=== PATIENT | female | born 1935 | race Caucasian/White ===

== ENCOUNTER 2020-08-08 07:03 | Day surgery (SDC) | payer OTHER ==
--- OUTSIDE RECORDS SUMMARY | 2020-08-08 07:06 | XMS REPORT | Summary of Care ---
:1935 Author Organization [facility] Address [address] [place] [address] Care Team Providers Name Role Phone Julieta Primary Care Provider Encounter Details Date Type Department Care Team Description 05/23/2020 Laboratory Only [facility] Karen Villegas [place] [facility] [place] [address] Exposure to Covid-19 Phlebotomy Only, Adc Test Virus (Primary Dx) Lab-[address] [address] Allergies Active Allergy Reactions Severity Noted Date Comments Aspirin Unknown - See comments 04/29/2006 Sever e pain Diphenhydramine Hcl Palpitations High 07/01/2006 Morphine Unknown - See comments High 11/25/2017 Evin michael reports It "knocked her ou t and almost killed h er, she wouldn't wake u p." Sulfamethoprim Ds Other - See comments 01/02/2018 documented as of this encounter (statuses as of 05/23/2020) Medications Medication Sig Dispensed Refills Start Date End Date Status levothyroxine Take 137 mcg by 0 Active (SYNTHROID) 137 mcg mouth every tablet morning. mirtazapine (REMERON) 15 Take 15 mg by 0 Active mg tablet mouth at bedtime. ipratropium-albuterol 1 Ampule every 4 0 Active (DUONEB) 0.5 mg-3 mg(2.5 (four) hours as mg base)/3 mL nebulizer needed for solution Wheezing. ALBUTEROL INHALE Inhale 0.083 % 3 0 Active (three) times daily. LIDOCAINE (LIDODERM Apply 1 Patch to 0 Active TOPICAL) area(s) daily. QUEtiapine 300 mg tablet Take 0.5 tablets 30 tablet 1 03/16/20 17 Active by mouth at bedtime. Fluticasone-Salmeterol Inhale 1 Puff 60 Each 1 03/16/2017 Active 100-50 mcg/dose every 12 inhalation disk (twelve) hours. HYDROcodone-acetaminophe Take 1 tablet by 0 Active n 10-325 mg tablet mouth 4 (four) times daily. loratadine (CLARITIN) 10 Take 10 mg by 0 Active mg tablet mouth daily. magnesium oxide 400 mg Take 400 mg by 0 Active capsule mouth daily. memantine (NAMENDA XR) Take 1 capsule 0 Active 28 mg capsule by mouth daily. Olopatadine (PATADAY) Place 1 Drop in 0 Active 0.2 % ophthalmic each eye daily. dropsIndications: Each Indications: Eye Each Eye pantoprazole 40 mg EC Take 40 mg by 0 Active tablet mouth daily. aspirin 81 mg chewable Take 81 mg by 0 Active tablet mouth daily. Cholecalciferol, Vitamin Take 3 capsules 0 Active D3, (VITAMIN D3) 1,000 by mouth daily. unit capsule lactulose 10 gram/15 mL Take 15 mL by 0 Active (15 mL) Soln mouth at bedtime. docusate (COLACE) 100 mg Take 100 mg by 0 Active capsule mouth daily. clonazePAM (KLONOPIN) Take 0.5 mg by 0 Active 0.5 mg tablet mouth 2 (two) times daily. Simethicone 125 mg Tab Take 1 capsule 0 Active by mouth every 4 (four) hours as needed (Gas). Dextromethorphan-Guaifen Take 10 mL by 0 Active esin (TUSSIN DM) 10-100 mouth every 6 mg/5 mL Liqd (six) hours as needed for Cough. bisacodyl 10 mg Insert 10 mg 0 A ctive suppository into rectum once daily as needed for Constipation. bisacodyl 5 mg EC tablet Take 10 mg by 0 Active mouth once daily as needed for Constipation. MAGNESIUM HYDROXIDE Take 30 mL by 0 Active (MILK OF MAGNESIA mouth once daily CONCENTRATED ORAL) as needed for Constipation. nitroglycerin Place 0.4 mg 0 Act brianna (NITROSTAT) 0.4 mg under the tongue sublingual tablet every 5 (five) minutes as needed for Chest pain. MAGNESIUM CITRATE ORAL Take 10 oz by 0 Active mouth once daily as needed for Constipation. SERTraline 50 mg tablet Take 75 mg by 0 Active mouth daily. MULTIVITAMIN ORAL Take 1 tablet by 0 Active mouth daily. montelukast (SINGULAIR) Take 10 mg by 0 Active 10 mg tablet mouth daily. lisinopril 10 mg tablet Take 10 mg by 0 Active mouth at bedtime. DEXTRAN 70/HYPROMELLOSE Place 1 Drop in 0 Active (ARTIFICIAL TEARS each eye 2 (two) OPHTHALMIC) times daily. gabapentin 600 mg Take 600 mg by 0 Active tabletIndications: Take mouth 2 (two) at 0800 and 1200. times daily. Indications: Take at 0800 and 1200. ferrous sulfate 325 mg Take 325 mg by 0 Active (65 mg iron) tablet mouth 2 (two) times daily. albuterol sulfate Inhale 2 Puffs 0 Active (PROAIR RESPICLICK) 90 every 6 (six) mcg/actuation AePB hours as needed for Other (Shortness of breath). umeclidinium-vilanterol Inhale 1 Puff 0 Active (ANORO ELLIPTA) 62.5-25 daily. mcg/actuation inhalation disk donepezil 10 mg tablet Take 15 mg by 0 Active mouth at bedtime. tiZANidine 2 mg capsule Take 2 mg by 0 Active mouth at bedtime. acetaminophen 325 mg Take 650 mg by 0 Active tablet mouth every 6 (six) hours as needed for Pain (scale 1-3). cloNIDine 0.1 mg Take 0.1 mg by 0 Active tabletIndications: SBP mouth every 6 >180 (six) hours as needed for Other (B/P). Indications: SBP >180 alum-mag Take 30 mL by 0 Active hydroxide-simeth mouth every 6 (NAINA-MOX (six) hours as ANTACID-ANTIGAS) needed for 200-200-20 mg/5 mL Indigestion. suspension guaifenesin (NAINA-TUSSIN Take 10 mL by 0 Active ORAL) mouth every 8 (eight) hours as needed (cough). phenazopyridine 100 mg Take 200 mg by 0 Active tabletIndications: pain mouth 2 (two) related to dysuria times daily. Indications: pain related to dysuria documented as of this encounter (statuses as of 05/23/2020) Active Problems Problem Noted Date Hypotension 11/24/2019 Acute pancreatitis 10/05/2018 SHANE (acute kidney injury) 03/16/2017 Hypoxia 03/16/2017 Polypharmacy 03/16/2017 Altered mental status 03/14/2017 Obesity (BMI 30-39.9) 03/13/2017 UTI (urinary tract infection) 03/13/2017 Complicated UTI (urinary tract infection) 03/13/2017 Sepsis 06/19/2016 Essential hypertension, benign 10/18/2006 Calculus of kidney 10/18/2006 Routine general medical examination at [facility] 10/18/2006 Esophageal reflux 10/18/2006 Depressive disorder 10/18/2006 Overview: ICD10 Diagnosis Term Wind Turbine Erector Utility Anxiety state 10/18/2006 Overview: ICD10 Diagnosis Term Wind Turbine Erector Utility documented as of this encounter (statuses as of 05/23/2020) Immunizations Name Administration Dates Next Due Influenza Virus Vaccine 10/18/2006 Pneumococcal Polysaccharide, PPSV23 (PNEUMOVAX) 06/24/2016 documented as of this encounter Social History Tobacco Use Types Packs/Day Years Used Date Former Smoker Cigarettes 1 30 Smokeless Tobacco: Never Used Comments: quit 4 years ago Alcohol Use Drinks/Week oz/Week Comments No Sex Assigned at Date Recorded Not on file Job Start Date Occupation Industry Not on file Not on file Not on file Travel History Travel Start Travel End No recent travel history available. documented as of this encounter Last Filed Vital Signs Not on filedocumented in this encounter Plan of Treatment Date Type Specialty Care Team Description 07/02/2020 Office Visit Urology Vera Maldonado, MACHINIST LINOTYPE [address] [address] [phone] Name Type Priority Associated Diagnoses Date/Ti me COVID-19 (PCR MOLECULAR LAB Routine Exposure to Covid -19 05/22/2020 6:48 PM CDT TESTING) Virus Name Type Priority Associated Diagnoses Order S nissa COVID-19 (PCR MOLECULAR LAB Routine Exposure to Covid -19 Expected: 05/23/2020, TESTING) Virus Expires: 2020 Health Maintenance Due Date Last Done Comments DTaP,Tdap,and Td Vaccines (1 - Tdap) 1946 Zoster Recombinant Vaccine (SHINGRIX) (1 of 2) 1987 Medicare Wellness Visit 2002 Osteoporosis Screening 04/01/2015 04/01/2005 PNEUMOCOCCAL VACCINES 65+ (2 of 2 - PCV13) 06/24/201706/24 INFLUENZA VACCINE (#1) 2020 10/18/2006 Depression Screening 01/02/2021 01/02/2020 documented as of this encounter Results Not on filedocumented in this encounter Visit Diagnoses Diagnosis Exposure to Covid-19 Virus - Primary documented in this encounter Additional Health Concerns Infection Onset Date Last Indicated Resolved Time Contact- MRSA 06/21/2016 06/21/2016 documented as of this encounter Insurance Payer Benefit Plan / Subscriber ID Effective Dates Phone Addre ss Type Group MEDICARE MEDICARE PART xxxxxxxxxxx 2002-Prese [phone] Medicare A & B 2 [id number] [place] [address] [facility] MEDICAID OF xxxxxxxxx 2015-Presen [phone] [address] Medicaid [facility] 0 [id number] [place] [address] [phone] (Work) documented as of this encounter Advance Directives Name Relationship Healthcare Agent Communication Relationship Alejandro Garry Child Primary healthcare agent Brit Castañeda Grandchild Second alternate [phone] healthcare agent (Mobile) [email or web address]
--- OUTSIDE RECORDS SUMMARY | 2020-08-08 07:07 | XMS REPORT | Continuity of Care Document ---
:1935 Author Organization [facility] t Address 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 Allergies, Adverse Reactions, Alerts This patient has no known allergies or adverse reactions. Medications This patient has no known medications. Procedures This patient has no known procedures. Encounters Start End Encounter Admission Attending Care Care Encounter Source Date/Time Date/Time Type Type Clinicians Facility Department ID 2020-07-30 2020-07-30 Orders Doctor [place] [id number] 00:00:00 00:00:00 Only UnassDULCE ernst [id number] [place] [facility] [id number] [id number] [id number] 2020-06-09 2020-06-09 Orders Doctor [place] 1.2.840.114 [id number] 00:00:00 00:00:00 Only Unassigned, DULCE [id number] [place] [facility] 4.2.7.2.686 [id number] [id number] 2020-05-23 2020-05-23 Laboratory Only, Adc [facility] 1.2.840.114 [id number] 10:24:14 10:28:52 Only Test [place] [id number] [place] 4.2.7.2.686 [place] [id number] [id number] 2020-05-22 2020-05-22 Orders Doctor ERIK Peñaloza.2.840.114 [id number] 00:00:00 00:00:00 Only Unassigned, DULCE [id number] [place] [facility] 4.2.7.2.686 [id number] [id number] 2020-02-25 2020-02-25 Orders Doctor ERIK Peñaloza.2.840.114 [id number] 00:00:00 00:00:00 Only Unassigned, DULCE 350.1.13.10 [place] [facility] 4.2.7.2.686 [id number] [id number] 2020-02-08 2020-02-08 Orders Doctor ERIK Peñaloza.2.840.114 [id number] 00:00:00 00:00:00 Only Unassigned, DULCE 350.1.13.10 [place] [facility] 4.2.7.2.686 [id number] [id number] 2020-01-31 2020-01-31 Orders Doctor [place] 1.2.840.114 [id number] 00:00:00 00:00:00 Only Unassigned, DULCE 350.1.13.10 [place] [facility] 4.2.7.2.686 [id number] [id number] 2020-01-23 2020-01-23 Orders Doctor ERIK Delgado2.840.114 [id number] 00:00:00 00:00:00 Only Unassigned, DULCE 350.1.13.10 [place] [facility] 4.2.7.2.686 [id number] [id number] 2020-01-11 2020-01-11 Orders Doctor ERIK Delgado2.840.114 [id number] 00:00:00 00:00:00 Only Unassigned, DULCE 350.1.13.10 [place] [facility] 4.2.7.2.686 [id number] [id number] 2020-01-09 2020-01-09 Hospital Radiology [facility] 1.2.840.114 [id number] 14:44:00 23:59:00 Encounter [place] 350.1.13.10 [place] 4.2.7.2.686 [place] [id number] 2020-01-04 2020-01-04 Orders Doctor ERIK 1.2.840.114 [id number] 00:00:00 00:00:00 Only Unassigned, DULCE 350.1.13.10 [place] [facility] 4.2.7.2.686 [id number] [id number] 2020-01-02 2020-01-02 Office Gramm, [facility] 1.2.840.114 [id number] 12:57:07 13:29:25 Visit Vera Castro [place] 350.1.13.10 [place] 4.2.7.2.686 [facility] [id number] [address] 2019-12-29 2019-12-29 Orders Doctor [place] 1.2.840.114 [id number] 01 00:00:00 00:00:00 Only Unassigned, [place]ULCE 350.1.13.10 [place] [facility] 4.2.7.2.686 [id number] [id number] 2019-12-17 2019-12-17 Orders Doctor [place] 1.2.840.114 [id number] 31 00:00:00 00:00:00 Only Unassigned, [place]ULCE 350.1.13.10 [place] [facility] 4.2.7.2.686 [id number] [id number] Results This patient has no known results.
--- OUTSIDE RECORDS SUMMARY | 2020-08-08 07:07 | XMS REPORT | Summary of Care ---
:1935 Author Organization [facility] - Health Address [address] [place] [address] Care Team Providers Name Role Phone Julieta Primary Care Provider Encounter Details Date Type Department Care Team Description 06/09/2020 Orders Only [facility] Doctor Unassigned, No 301 [facility] [place] [address] [address] [place] [address] Allergies Active Allergy Reactions Severity Noted Date Comments Aspirin Unknown - See comments 04/29/2006 Sever e pain Diphenhydramine Hcl Palpitations High 07/01/2006 Morphine Unknown - See comments High 11/25/2017 Evin michael reports It "knocked her ou t and almost killed h er, she wouldn't wake u p." Sulfamethoprim Ds Other - See comments 01/02/2018 documented as of this encounter (statuses as of 06/10/2020) Medications Medication Sig Dispensed Refills Start Date [...] as of this encounter (statuses as of 06/10/2020) Active Problems Problem Noted Date Hypotension 11/24/2019 Acute pancreatitis 10/05/2018 SHANE (acute kidney injury) 03/16/2017 Hypoxia 03/16/2017 Polypharmacy 03/16/2017 Altered mental status 03/14/2017 Obesity (BMI 30-39.9) 03/13/2017 UTI (urinary tract infection) 03/13/2017 Complicated UTI (urinary tract infection) 03/13/2017 Sepsis 06/19/2016 Essential hypertension, benign 10/18/2006 Calculus of kidney 10/18/2006 [facility] 10/18/2006 Esophageal reflux 10/18/2006 Depressive disorder 10/18/2006 Overview: ICD10 Diagnosis Term Report Clerk Utility Anxiety state 10/18/2006 Overview: ICD10 Diagnosis Term Report Clerk Utility documented as of this encounter (statuses as of 06/10/2020) Immunizations Name Administration Dates Next Due Influenza [...] Description 07/02/2020 Office Visit Urology Vera Maldonado, STORE WORKER [address] [address] 15 [phone] Health Maintenance Due Date Last Done Comments DTaP,Tdap,and Td Vaccines (1 - Tdap) 1946 Zoster Recombinant Vaccine (SHINGRIX) (1 of 2) 1987 Medicare Wellness Visit 2002 Osteoporosis Screening 04/01/2015 04/01/2005 PNEUMOCOCCAL VACCINES 65+ (2 of 2 - PCV13) 06/24/201706/24 INFLUENZA VACCINE (#1) 2020 10/18/2006 Depression Screening 01/02/2021 01/02/2020 documented as of this encounter Procedures Procedure Name Priority Date/Time Associated Diagnosis Comme nts HOME HEALTH - OTHER Routine 06/09/2020 12:01 AM CDT documented in this encounter Results Not on filedocumented in this encounter Additional Health Concerns Infection Onset Date Last Indicated Resolved Time Contact- MRSA 06/21/2016 06/21/2016 documented as of this encounter Insurance Payer Benefit Plan / Subscriber ID Effective Dates Phone Addre ss Type Group MEDICARE MEDICARE PART xxxxxxxxxxx 2002-Prese [phone] [address] Medicare A & B 2 [id number] [place] [address] [facility] MEDICAID OF xxxxxxxxx 2015-Presen [phone] [address] Medicaid [facility] 0 [id number] [place] [address] documented as of this encounter Advance Directives Name Relationship Healthcare Agent Communication Relationship Alejandro Castañeda Child Primary healthcare agent Brit Castañeda Grandchild Second alternate [phone] healthcare agent (Mobile) [email or web address]
--- OUTSIDE RECORDS SUMMARY | 2020-08-08 07:07 | XMS REPORT | Summary of Care ---
:1935 Author Organization [facility] - Health Address [address] [place] [address] Care Team Providers Name Role Phone Julieta Primary Care Provider Encounter Details Date Type Department Care Team Description 05/22/2020 Orders Only [facility] Doctor Unassigned, No 301 [facility] [place] [address] [address] [place] [address] Allergies Active Allergy Reactions Severity Noted Date Comments Aspirin Unknown - See comments 04/29/2006 Sever e pain Diphenhydramine Hcl Palpitations High 07/01/2006 Morphine Unknown - See comments High 11/25/2017 Evin michael reports It "knocked her ou t and almost killed h er, she wouldn't wake u p." Sulfamethoprim Ds Other - See comments 01/02/2018 documented as of this encounter (statuses as of 06/02/2020) Medications Medication Sig Dispensed Refills Start Date [...] as of this encounter (statuses as of 06/02/2020) Active Problems Problem Noted Date Hypotension 11/24/2019 Acute pancreatitis 10/05/2018 SHANE (acute kidney injury) 03/16/2017 Hypoxia 03/16/2017 Polypharmacy 03/16/2017 Altered mental status 03/14/2017 Obesity (BMI 30-39.9) 03/13/2017 UTI (urinary tract infection) 03/13/2017 Complicated UTI (urinary tract infection) 03/13/2017 Sepsis 06/19/2016 Essential hypertension, benign 10/18/2006 Calculus of kidney 10/18/2006 [facility] 10/18/2006 Esophageal reflux 10/18/2006 Depressive disorder 10/18/2006 Overview: ICD10 Diagnosis Term Generation Manager Utility Anxiety state 10/18/2006 Overview: ICD10 Diagnosis Term Generation Manager Utility documented as of this encounter (statuses as of 06/02/2020) Immunizations Name Administration Dates Next Due Influenza [...] Description 07/02/2020 Office Visit Urology Vera Maldonado, PLASTIC DOLLS MOLD FILLER [address] [address] [phone] Health Maintenance Due Date Last Done Comments [...] Comme nts HOME HEALTH - OTHER Routine 05/22/2020 12:01 AM CDT documented in this encounter Results Not on filedocumented in this encounter Additional Health Concerns Infection Onset Date Last Indicated Resolved Time Contact- MRSA 06/21/2016 06/21/2016 COVID-19 Rule Out 05/23/2020 05/22/2020 05/23/2020 10: 03 PM CDT documented as of this encounter Insurance Payer Benefit Plan / Subscriber ID Effective Dates Phone Addre ss Type Group MEDICARE MEDICARE PART xxxxxxxxxxx 2002-Prese [phone] Medicare A & B 2 [id number] [place] [address] [facility] MEDICAID OF xxxxxxxxx 2015-Presen [id number] [address] Medicaid [facility] [id number] [place] [address] documented as of this encounter Advance Directives Name Relationship Healthcare Agent Communication Relationship Alejandro Castañeda Child Primary healthcare agent Brit Castañeda Grandchild Second alternate [phone] healthcare agent (Mobile) [email or web address]
--- OUTSIDE RECORDS SUMMARY | 2020-08-08 07:07 | XMS REPORT | Summary of Care ---
:1935 Author Organization [facility] - Health Address [address] [place] [address] Care Team Providers Name Role Phone Julieta Primary Care Provider Encounter Details Date Type Department Care Team Description 07/30/2020 Orders Only [facility] Doctor Unassigned, No 301 [facility] [place] [address] [address] [id number] Allergies Active Allergy Reactions Severity Noted Date Comments Aspirin Unknown - See comments 04/29/2006 Sever e pain Diphenhydramine Hcl Palpitations High 07/01/2006 Morphine Unknown - See comments High 11/25/2017 Evin michael reports It "knocked her ou t and almost killed h er, she wouldn't wake u p." Sulfamethoprim Ds Other - See comments 01/02/2018 documented as of this encounter (statuses as of 07/31/2020) Medications Medication Sig Dispensed Refills Start Date [...] as of this encounter (statuses as of 07/31/2020) Active Problems Problem Noted Date Hypotension 11/24/2019 Acute pancreatitis 10/05/2018 SHANE (acute kidney injury) 03/16/2017 Hypoxia 03/16/2017 Polypharmacy 03/16/2017 Altered mental status 03/14/2017 Obesity (BMI 30-39.9) 03/13/2017 UTI (urinary tract infection) 03/13/2017 Complicated UTI (urinary tract infection) 03/13/2017 Sepsis 06/19/2016 Essential hypertension, benign 10/18/2006 Calculus of kidney 10/18/2006 [facility] 10/18/2006 Esophageal reflux 10/18/2006 Depressive disorder 10/18/2006 Overview: ICD10 Diagnosis 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 Composing Room Utility Anxiety state 10/18/2006 Overview: ICD10 Diagnosis 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 Composing Room Utility documented as of this encounter (statuses as of 07/31/2020) Immunizations Name Administration Dates Next Due Influenza Virus Vaccine 10/18/2006 Pneumococcal Polysaccharide, PPSV23 (PNEUMOVAX) 06/24/2016 documented as of this encounter Social History Tobacco Use Types Packs/Day Years Used Date Former Smoker Cigarettes 1 30 Smokeless Tobacco: Never Used Comments: quit 4 years ago Alcohol Use Drinks/Week oz/Week Comments No Sex Assigned at Date Recorded Not on file documented as of this encounter Last Filed Vital Signs Not on filedocumented in this encounter Plan of Treatment Health Maintenance Due Date Last Done Comments DTaP,Tdap,and Td Vaccines (1 - Tdap) 1954 Zoster Recombinant Vaccine (SHINGRIX) (1 of 2) 1987 Medicare Wellness Visit 2002 Osteoporosis Screening 04/01/2015 04/01/2005 INFLUENZA VACCINE (#1) 2020 10/18/2006 Depression Screening 01/02/2021 01/02/2020 PNEUMOCOCCAL VACCINES 65+ Completed 06/24/2016 documented as of this encounter Procedures Procedure Name Priority Date/Time Associated Diagnosis Comme nts HOME HEALTH - OTHER Routine 07/30/2020 12:01 AM CDT documented in this encounter Results Not on filedocumented in this encounter Additional Health Concerns Infection Onset Date Last Indicated Resolved Time Contact- MRSA 06/21/2016 06/21/2016 documented as of this encounter Insurance Payer Benefit Plan / Subscriber ID Effective Dates Phone Addre ss Type Group MEDICARE MEDICARE PART [id number] 2002-Prese [phone] [address] Medicare A & B [place] 2 [id number] [place] [id number] [facility] MEDICAID OF [id number] 2015-Presharry [phone] [address] Medicaid [facility] 0 [id number] [place] [address] documented as of this encounter Advance Directives Name Relationship Healthcare Agent Communication Relationship Alejandro Castañeda [facility] Health Care Agent Brit Castañeda Grandchild [employer] [facility] Care Agent (Mobile) [email or web address]
[2020-08-08] MEDS ORDERED: NA CHLORIDE 0.9% 250 ML ONE (08:08)
[2020-08-08 09:03] VITALS: BMI 35.2
[2020-08-08] MEDS ORDERED: FUROSEMIDE 40 MG/4 ML VIAL ONE (12:02)
[2020-08-08 12:52] LABS: Hematocrit 28.6 % (36.0-45.0)
[2020-08-08 18:02] VITALS: BP 159/66; TEMP 97.5; O2SAT 95
== END 2020-08-08 12:00 | disposition home or self-care (01) ==
LOC: DS 07:03
PROVIDERS: ATTEND Internal Medicine Gastroenterology
DX: D50.9 Iron deficiency anemia, unspecified (principal)
CPT/HCPCS: 36415; 86900; 86850; 86901; 85018; 85014; 36430; J1940; P9016; J7050

== ENCOUNTER 2020-11-10 15:11 | Emergency (ER) | payer OTHER ==
--- OUTSIDE RECORDS SUMMARY | 2020-11-10 15:13 | XMS REPORT | Summary of Care ---
:1935 Author Organization [facility] - Health Address [address] [place] [address] Care Team Providers Name Role Phone Julieta Primary Care Provider Encounter Details Date Type Department Care Team Description 08/12/2020 Orders Only [facility] Doctor Unassigned, No 301 [facility] [place] [address] [address] [place] [id number] Allergies Active Allergy Reactions Severity Noted Date Comments Aspirin Unknown - See comments 04/29/2006 Sever e pain Diphenhydramine Hcl Palpitations High 07/01/2006 Morphine Unknown - See comments High 11/25/2017 Evin michael reports It "knocked her ou t and almost killed h er, she wouldn't wake u p." Sulfamethoprim Ds Other - See comments 01/02/2018 documented as of this encounter (statuses as of 08/13/2020) Medications Medication Sig Dispensed Refills Start Date [...] as of this encounter (statuses as of 08/13/2020) Active Problems Problem Noted Date Hypotension 11/24/2019 Acute pancreatitis 10/05/2018 SHANE (acute kidney injury) 03/16/2017 Hypoxia 03/16/2017 Polypharmacy 03/16/2017 Altered mental status 03/14/2017 Obesity (BMI 30-39.9) 03/13/2017 UTI (urinary tract infection) 03/13/2017 Complicated UTI (urinary tract infection) 03/13/2017 Sepsis 06/19/2016 Essential hypertension, benign 10/18/2006 Calculus of kidney 10/18/2006 [facility] 10/18/2006 Esophageal reflux 10/18/2006 Depressive disorder 10/18/2006 Overview: ICD10 Diagnosis Term Physician Non Invasive Cardiologist Utility Anxiety state 10/18/2006 Overview: ICD10 Diagnosis Term Physician Non Invasive Cardiologist Utility documented as of this encounter (statuses as of 08/13/2020) Immunizations Name Administration Dates Next Due Influenza [...] Comme nts HOME HEALTH - OTHER Routine 08/12/2020 12:01 AM CDT documented in this encounter Results Not on filedocumented in this encounter Additional Health Concerns Infection Onset Date Last Indicated Resolved Time Contact- MRSA 06/21/2016 06/21/2016 documented as of this encounter Insurance Payer Benefit Plan / Subscriber ID Effective Dates Phone Addre ss Type Group MEDICARE MEDICARE PART [id number] 2002-Prese [phone] Medicare A & B nt 2 [id number] J[place]H TOURE [address] [facility] MEDICAID OF [id number] 2015-Presharry [phone] [address] Medicaid [facility] [id number] [place] [address] documented as of this encounter Advance Directives Name Relationship Healthcare Agent Communication Relationship Alejandro Castañeda [facility] Health Care Agent Brit Castañeda Grandchild [facility] [phone] Care Agent (Mobile) [email or web address]
--- OUTSIDE RECORDS SUMMARY | 2020-11-10 15:13 | XMS REPORT | Continuity of Care Document ---
:1935 Author Organization [facility] t Address [address] [place] [address] Care Team Providers Name Role Phone Surinder TABOR, L Attending Clinician Unavailable Doctor Unassigned, Name Attending Clinician Unavailable Diane WHALEY C Attending Clinician Pob, Lab Main Attending Clinician Unavailable Only, Test Attending Clinician Unavailable Radiology Attending Clinician Unavailable Gramm SENIOR PHARMACY TECHNICIAN, A Attending Clinician Problems This patient has no known problems. Allergies, Adverse Reactions, Alerts This patient has no known allergies or adverse reactions. Medications This patient has no known medications. Procedures This patient has no known procedures. Encounters Start End Encounter Admission Attending Care Care Encounter Source Date/Time Date/Time Type Type Clinicians Facility Department ID 2020-11-04 2020-11-04 Transition Joey Cadena 1.2.840.114 [id number] 00:00:00 00:00:00 of Care Jennifer Sorenson 350.1.13.10 [place] 4.2.7.2.686 [id number] 2020-10-28 2020-10-28 Orders Doctor VALENCIA 1.2.840.114 [id number] 00:00:00 00:00:00 Only Unassigned, DULCE 350.1.13.10 [facility] 4.2.7.2.686 [id number] [id number] 2020-10-23 2020-10-23 Orders Doctor VALENCIA 1.2.840.114 [id number] 00:00:00 00:00:00 Only Unassigned, DULCE 350.1.13.10 [facility] 4.2.7.2.686 [id number] 009 2020-10-13 2020-10-13 Orders Doctor VALENCIA 1.2.840.114 [id number] 00:00:00 00:00:00 Only Unassigned, DULCE 350.1.13.10 [place] [address].2.7.2.686 [id number] 009 2020-09-25 2020-09-25 Orders Doctor VALENCIA 1.2.840.114 [id number] 00:00:00 00:00:00 Only Unassigned, DULCE 350.1.13.10 [facility] 4.2.7.2.686 [id number] [id number] 2020-08-26 2020-08-26 Orders Doctor VALENCIA 1.2.840.114 [id number] 00:00:00 00:00:00 Only Unassigned, DULCE 350.1.13.10 [facility] 4.2.7.2.686 [id number] 009 2020-08-25 2020-08-25 [facility] 1.2.840.114 [id number] 16:56:49 23:59:00 Elaine Ladd 350.1.13.10 [place] 4.2.7.2.686 [place] [id number] 2020-08-25 2020-08-25 Orders Doctor VALENCIA 1.2.840.114 [id number] 00:00:00 00:00:00 Only Unassigned, DULCE 350.1.13.10 [facility] 4.2.7.2.686 [id number] 009 2020-08-19 2020-08-19 Manager Of Production Margo Garcia [facility] 1.2.840.114 [id number] 12:38:14 12:53:14 Visit Lab Main [place] 350.1.13.10 [place] 4.2.7.2.686 [facility] [id number] [address] 2020-08-12 2020-08-12 Orders Doctor VALENCIA 1.2.840.114 [id number] 00:00:00 00:00:00 Only Unassigned, DULCE 350.1.13.10 [facility] 4.2.7.2.686 [id number] [id number] 2020-07-30 2020-07-30 Orders Doctor VALENCIA 1.2.840.114 [id number] 00:00:00 00:00:00 Only Unassigned, DULCE 350.1.13.10 [facility] 4.2.7.2.686 [id number] 009 2020-06-09 2020-06-09 Orders Doctor ERIK Peañloza.2.840.114 [id number] 00:00:00 00:00:00 Only Unassigned, DULCE 350.1.13.10 [facility] 4.2.7.2.686 [id number] 009 2020-05-23 2020-05-23 Laboratory Only, [facility] 1.2.840.114 [id number] 10:24:14 10:28:52 Only Test [place] 350.1.13.10 [place] 4.2.7.2.686 [place] [id number] 2020-05-22 2020-05-22 Orders Doctor ERIK Peñaloza.2.840.114 [id number] 31 00:00:00 00:00:00 Only Unassigned, DULCE 350.1.13.10 [facility] 4.2.7.2.686 [id number] 009 2020-02-25 2020-02-25 Orders Doctor ERIK Delgado2.840.114 [id number] 00:00:00 00:00:00 Only Unassigned, DULCE 350.1.13.10 [facility] 4.2.7.2.686 [id number] 009 2020-02-08 2020-02-08 Orders Doctor ERIK Delgado2.840.114 [id number] 00:00:00 00:00:00 Only Unassigned, DULCE 350.1.13.10 [facility] 4.2.7.2.686 [id number] 009 2020-01-31 2020-01-31 Orders Doctor VALENCIA 1.2.840.114 [id number] 00:00:00 00:00:00 Only Unassigned, DULCE 350.1.13.10 [facility] 4.2.7.2.686 [id number] 009 2020-01-23 2020-01-23 Orders Doctor VALENCIA 1.2.840.114 [id number] 00:00:00 00:00:00 Only Unassigned, DULCE 350.1.13.10 [facility] 4.2.7.2.686 [id number] 009 2020-01-11 2020-01-11 Orders Doctor VALENCIA 1.2.840.114 [id number] 00:00:00 00:00:00 Only Unassigned, DULCE 350.1.13.10 [facility] 4.2.7.2.686 [id number] 009 2020-01-09 2020-01-09 Hospital Radiology [facility] 1.2.840.114 [id number] 14:44:00 23:59:00 Encounter [place] 350.1.13.10 [place] 4.2.7.2.686 [place] [id number] 2020-01-04 2020-01-04 Orders Doctor VALENCIA 1.2.840.114 [id number] 00:00:00 00:00:00 Only Unassigned, DULCE 350.1.13.10 [facility] 4.2.7.2.686 [id number] 009 2020-01-02 2020-01-02 Office Gramm, [facility] 1.2.840.114 [id number] 03 12:57:07 13:29:25 Visit Vera Aquino 350.1.13.10 [place] 4.2.7.2.686 [facility] [phone] [address] 2019-12-29 2019-12-29 Orders Doctor VALENCIA 1.2.840.114 [id number] 01 00:00:00 00:00:00 Only Unassigned, DULCE 350.1.13.10 [place] [address].2.7.2.686 [id number] 009 2019-12-17 2019-12-17 Orders Doctor ERIK 1.2.840.114 [id number] 00:00:00 00:00:00 Only Unassigned, [place]ULCE 350.1.13.10 [place] [address]686 [id number] 009 Results This patient has no known results.
--- OUTSIDE RECORDS SUMMARY | 2020-11-10 15:14 | XMS REPORT | Summary of Care ---
:1935 Author Organization [facility] Address [address] [place] [address] Care Team Providers Name Role Phone Julieta Primary Care Provider Reason for Visit Reason Comments LAB WORK Auth/Cert Status Reason Specialty Diagnoses / Procedures Referred By Jorge valle Referred To Contact Phlebotomy Procedures Adc Pob Lab Draw CBC Professional O ffice Building [address] , [address] [place] [address] Phone: Fax: Encounter Details Date Type Department Care Team Description 08/19/2020 Husker Operator Visit [facility] Jessie Contreras MD [facility] [address] [place] [employer] [id number] [place] [address] Hepatic cirrhosis, unspecified hepatic c irrhosis type, unspecified whether ascites present (Primary Dx); Professional Office Pob, Adc Lab Main Iron deficiency anemia, unspecified iron deficiency anemia type Building Phlebotomy Lab Professional Office Building [address] [facility] , [address] [place] [address] Allergies Active Allergy Reactions Severity Noted Date Comments Aspirin Unknown - See comments 04/29/2006 Sever e pain Diphenhydramine Hcl Palpitations High 07/01/2006 Morphine Unknown - See comments High 11/25/2017 Evin michael reports It "knocked her ou t and almost killed h er, she wouldn't wake u p." Sulfamethoprim Ds Other - See comments 01/02/2018 documented as of this encounter (statuses as of 08/19/2020) Medications Medication Sig Dispensed Refills Start Date [...] as of this encounter (statuses as of 08/19/2020) Active Problems Problem Noted Date Hypotension 11/24/2019 Acute pancreatitis 10/05/2018 SHANE (acute kidney injury) 03/16/2017 Hypoxia 03/16/2017 Polypharmacy 03/16/2017 Altered mental status 03/14/2017 Obesity (BMI 30-39.9) 03/13/2017 UTI (urinary tract infection) 03/13/2017 Complicated UTI (urinary tract infection) 03/13/2017 Sepsis 06/19/2016 Essential hypertension, benign 10/18/2006 Calculus of kidney 10/18/2006 Routine general medical examination at a health care acility 10/18/2006 Esophageal reflux 10/18/2006 Depressive disorder 10/18/2006 Overview: ICD10 Diagnosis Term Progressive Care Nurse Utility Anxiety state 10/18/2006 Overview: ICD10 Diagnosis Term Progressive Care Nurse Utility documented as of this encounter (statuses as of 08/19/2020) Immunizations Name Administration Dates Next Due Influenza Virus Vaccine 10/18/2006 Pneumococcal Polysaccharide, PPSV23 (PNEUMOVAX) 06/24/2016 documented as of this encounter Social History Tobacco Use Types Packs/Day Years Used Date Former Smoker Cigarettes 1 30 Smokeless Tobacco: Never Used Comments: quit 4 years ago Alcohol Use Drinks/Week oz/Week Comments No Sex Assigned at Date Recorded Not on file COVID-19 Exposure Response Date Recorded In the last month, have you been in contact with No / Unsure 08/19/2020 12:37 PM CDT someone who was confirmed or suspected to have Coronavirus / COVID-19? documented as of this encounter Last Filed Vital Signs Not on filedocumented in this encounter Nursing Notes Cortney Ace - 08/19/2020 1:30 PM CDT Venipuncture collection performed by clean technique on the right hand. Total of 1 attempts were made. Slight pressure and a bandage/dressing were applied to the site(s). The patient experienced no complications. The following specimens were processed according to instructions and sent to [facility] laboratories per lab order on 08/19/20: LT BLUE 2 SST RED 1 LAV PPT DK GREEN (LiHep) DK GREEN (SodH) ALLISON DK BLUE (K2) DK BLUE (S) ACD Blood Culture NIPT/NTD documented in this encounter Plan of Treatment Date Type Specialty Care Team Description 08/25/2020 Appointment Radiology Diane, Cony Patel MD [address] [place] [phone] Name Type Priority Associated Diagnoses Order S chedule CBC WITH DIFF LAB Routine Hepatic cirrhosis, Expected : 08/19/2020, unspecified hepatic Expires: 08/19/2021 cirrhosis type, unspecified whether ascites present Iron deficiency anemia, unspecified iron deficiency anemia type BASIC METABOLIC PANEL LAB Routine Hepatic cirrhosis, Expected: 08/19/2020, (NA, K, CL, CO2, GLUCOSE, unspecified hep atic Expires: 08/19/2021 BUN, CREATININE, CA) cirrhosis type, unspecified whether ascites present Iron deficiency anemia, unspecified iron deficiency anemia type HEPATIC FUNCTION PANEL LAB Routine Hepatic cirrhosis, Expected: 08/19/2020, (88335) (ALB,T.PRO,BILI unspecified hepat ic Expires: 08/19/2021 T,BU/BC,ALT,AST,ALK PHOS) cirrhosis type, unspecified whether ascites present Iron deficiency anemia, unspecified iron deficiency anemia type ALPHA FETOPROTEIN LAB Routine Hepatic cirrhosis, Expe cted: 08/19/2020, unspecified hepatic Expires: 08/19/2021 cirrhosis type, unspecified whether ascites present Iron deficiency anemia, unspecified iron deficiency anemia type IRON PANEL LAB Routine Hepatic cirrhosis, Expected: 08/19/2020, unspecified hepatic Expires: 08/19/2021 cirrhosis type, unspecified whether ascites present Iron deficiency anemia, unspecified iron deficiency anemia type FERRITIN SERUM LAB Routine Hepatic cirrhosis, Expecte d: 08/19/2020, unspecified hepatic Expires: 08/19/2021 cirrhosis type, unspecified whether ascites present Iron deficiency anemia, unspecified iron deficiency anemia type TOTAL IRON BINDING LAB Routine Hepatic cirrhosis, Exp ected: 08/19/2020, CAPACITY unspecified hepatic Expires: 08/19/2021 cirrhosis type, unspecified whether ascites present Iron deficiency anemia, unspecified iron deficiency anemia type Health Maintenance Due Date Last Done Comments DTaP,Tdap,and Td Vaccines (1 - Tdap) 1954 Zoster Recombinant Vaccine (SHINGRIX) (1 of 2) 1987 Medicare Wellness Visit 2002 Osteoporosis Screening 04/01/2015 04/01/2005 INFLUENZA VACCINE (#1) 2020 10/18/2006 Depression Screening 01/02/2021 01/02/2020 PNEUMOCOCCAL VACCINES 65+ Completed 06/24/2016 documented as of this encounter Results Not on filedocumented in this encounter Visit Diagnoses Diagnosis Hepatic cirrhosis, unspecified hepatic c irrhosis type, unspecified whether ascites present - Primary Iron deficiency anemia, unspecified iron deficiency anemia type documented in this encounter Additional Health Concerns Infection Onset Date Last Indicated Resolved Time Contact- MRSA 06/21/2016 06/21/2016 documented as of this encounter Insurance Payer Benefit Plan / Subscriber ID Effective Dates Phone Addre ss Type Group MEDICARE MEDICARE PART [id number] 2002-Prese [phone] [address] Medicare A & B 2 [id number] [place] [address] [facility] MEDICAID OF [id number] 2015-Presharry [phone] [address] Medicaid [place] 0 [id number] [place] [address] [phone] [id number] (Work) documented as of this encounter Advance Directives Name Relationship Healthcare Agent Communication Relationship Alejandro Castañeda Child Health Care Agent Brit Castañeda Grandchild Second [address]4 [phone] Care Agent (Mobile) [email or web address]
--- OUTSIDE RECORDS SUMMARY | 2020-11-10 15:14 | XMS REPORT | Summary of Care ---
:1935 Author Organization [facility] - [facility] Address [address] [place] [address] Care Team Providers Name Role Phone Julieta Primary Care Provider Encounter Details Date Type Department Care Team Description 08/25/2020 Orders Only [facility] Doctor Unassigned, No 301 [facility] [place] [address] [address] [place] [address] Allergies Active Allergy Reactions Severity Noted Date Comments Aspirin Unknown - See comments 04/29/2006 Sever e pain Diphenhydramine Hcl Palpitations High 07/01/2006 Morphine Unknown - See comments High 11/25/2017 Evin fernanda reports It "knocked her ou t and almost killed h er, she wouldn't wake u p." Sulfamethoprim Ds Other - See comments 01/02/2018 documented as of this encounter (statuses as of 08/25/2020) Medications Medication Sig Dispensed Refills Start Date [...] as of this encounter (statuses as of 08/25/2020) Active Problems Problem Noted Date Hypotension 11/24/2019 Acute pancreatitis 10/05/2018 SHANE (acute kidney injury) 03/16/2017 Hypoxia 03/16/2017 Polypharmacy 03/16/2017 Altered mental status 03/14/2017 Obesity (BMI 30-39.9) 03/13/2017 UTI (urinary tract infection) 03/13/2017 Complicated UTI (urinary tract infection) 03/13/2017 Sepsis 06/19/2016 Essential hypertension, benign 10/18/2006 Calculus of kidney 10/18/2006 Routine general medical examination at [facility] 10/18/2006 Esophageal reflux 10/18/2006 Depressive disorder 10/18/2006 Overview: ICD10 Diagnosis Term Criminal Investigative Agent Utility Anxiety state 10/18/2006 Overview: ICD10 Diagnosis Term Criminal Investigative Agent Utility documented as of this encounter (statuses as of 08/25/2020) Immunizations Name Administration Dates Next Due Influenza [...] Specialty Care Team Description 08/25/2020 Appointment Radiology Cony Contreras MD [address] [phone] Health Maintenance Due Date Last Done Comments DTaP,Tdap,and Td Vaccines (1 - Tdap) 1954 Zoster Recombinant Vaccine (SHINGRIX) (1 of 2) 1987 Medicare Wellness Visit 2002 Osteoporosis Screening 04/01/2015 04/01/2005 INFLUENZA VACCINE (#1) 2020 10/18/2006 Depression Screening 01/02/2021 01/02/2020 PNEUMOCOCCAL VACCINES 65+ Completed 06/24/2016 documented as of this encounter Procedures Procedure Name Priority Date/Time Associated Diagnosis Comme nts ASSIGNMENT OF BENEFITS Routine 08/25/2020 4:53 PM CDT documented in this encounter Results Not on filedocumented in this encounter Additional Health Concerns Infection Onset Date Last Indicated Resolved Time Contact- MRSA 06/21/2016 06/21/2016 documented as of this encounter Insurance Payer Benefit Plan Subscriber ID Effective Phone Address Typ e / Group Dates MEDICARE MEDICARE PART [id number] 2002-Pres [phone] [address] Medicare A & B ent [id number] [place] [id number] [facility] [id number] 2018-Prese Medic aid HEALTHCARE COMM STAR PLUS nt PLAN - MANAGED MEDICAID [facility] MEDICAID OF [id number] 2015-Prese [phone] [address] Med icaid [place] [id number] [place] [address] documented as of this encounter Advance Directives Name Relationship Healthcare Agent Communication Relationship Alejandro Castañeda Child Health Care Agent Brit Castañeda Grandchild Second [facility] Care Agent (Mobile) [email or web address]
--- OUTSIDE RECORDS SUMMARY | 2020-11-10 15:14 | XMS REPORT | Summary of Care ---
:1935 Author Organization [facility] - [facility] Address [address] [place] [address] Care Team Providers Name Role Phone Julieta Primary Care Provider Encounter Details Date Type Department Care Team Description 08/26/2020 Orders Only [facility] Doctor Unassigned, No 301 [facility] [place] [address] [address] [place] [address] Allergies Active Allergy Reactions Severity Noted Date Comments Aspirin Unknown - See comments 04/29/2006 Sever e pain Diphenhydramine Hcl Palpitations High 07/01/2006 Morphine Unknown - See comments High 11/25/2017 Evin fernanda reports It "knocked her ou t and almost killed h er, she wouldn't wake u p." Sulfamethoprim Ds Other - See comments 01/02/2018 documented as of this encounter (statuses as of 08/27/2020) Medications Medication Sig Dispensed Refills Start Date [...] as of this encounter (statuses as of 08/27/2020) Active Problems Problem Noted Date Hypotension 11/24/2019 Acute pancreatitis 10/05/2018 SHANE (acute kidney injury) 03/16/2017 Hypoxia 03/16/2017 Polypharmacy 03/16/2017 Altered mental status 03/14/2017 Obesity (BMI 30-39.9) 03/13/2017 UTI (urinary tract infection) 03/13/2017 Complicated UTI (urinary tract infection) 03/13/2017 Sepsis 06/19/2016 Essential hypertension, benign 10/18/2006 Calculus of kidney 10/18/2006 Routine general medical examination at [facility] 10/18/2006 Esophageal reflux 10/18/2006 Depressive disorder 10/18/2006 Overview: ICD10 Diagnosis Term Heating Element Winder Utility Anxiety state 10/18/2006 Overview: ICD10 Diagnosis Term Heating Element Winder Utility documented as of this encounter (statuses as of 08/27/2020) Immunizations Name Administration Dates Next Due Influenza [...] been in contact with No / Unsure 08/25/2020 4:56 PM CDT someone who was confirmed or [...] Comme nts HOME HEALTH - OTHER Routine 08/26/2020 12:01 AM CDT documented in this encounter Results Not on filedocumented in this encounter Additional Health Concerns Infection Onset Date Last Indicated Resolved Time Contact- MRSA 06/21/2016 06/21/2016 documented as of this encounter Insurance Payer Benefit Plan Subscriber ID Effective Phone Address Typ e / Group Dates MEDICARE MEDICARE PART [id number] 2002-Pres [phone] [address] Medicare A & B ent [id number] [place] [phone] [facility] [id number] 2018-Prese Medic aid HEALTHCARE COMM STAR PLUS nt PLAN - MANAGED MEDICAID [facility] MEDICAID OF [id number] 2015-Prese [phone] [address] Med icaid [place] [address] [id number] [place] [address] documented as of this encounter Advance Directives Name Relationship Healthcare Agent Communication Relationship Alejandro Castañeda Child Health Care Agent Brit Castañeda [facility] Care Agent (Mobile) [email or web address]
--- OUTSIDE RECORDS SUMMARY | 2020-11-10 15:14 | XMS REPORT | Summary of Care ---
:1935 Author Organization [facility] Address [address] [place] [address] Care Team Providers Name Role Phone Julieta Primary Care Provider Reason for Referral Radiology Services (Routine) Status Reason Specialty Diagnoses / Referred By Referred To Procedures Contact Contact Closed Diagnostic Diagnoses Chronic anemia Chronic obstructive pulmonary disease, unspecified COPD type [place], Radiology Procedures US ABDOMEN LIMITED Elaine Patel MD [id number] [place] [id number] Reason for Visit Radiology Services (Routine) Status Reason Specialty Diagnoses / Referred By Referred To Procedures Contact Contact Closed Diagnostic Diagnoses Chronic anemia Chronic obstructive pulmonary disease, unspecified COPD type [place], Radiology Procedures US ABDOMEN LIMITED Elaine Patel MD [address] [address], [place] [address] Encounter Details Date Type Department Care Team Description 08/25/2020 Hospital Encounter [facility] Elaine Contreras MD [address] [place] [address] Dr [address] [place], [place] [id number] [place] [id number] Allergies Active Allergy Reactions Severity Noted Date Comments Aspirin Unknown - See comments 04/29/2006 Sever e pain Diphenhydramine Hcl Palpitations High 07/01/2006 Morphine Unknown - See comments High 11/25/2017 Evin michael reports It "knocked her ou t and almost killed h er, she wouldn't wake u p." Sulfamethoprim Ds Other - See comments 01/02/2018 documented as of this encounter (statuses as of 08/26/2020) Medications Medication Sig Dispensed Refills Start Date [...] as of this encounter (statuses as of 08/26/2020) Active Problems Problem Noted Date Hypotension 11/24/2019 Acute pancreatitis 10/05/2018 SHANE (acute kidney injury) 03/16/2017 Hypoxia 03/16/2017 Polypharmacy 03/16/2017 Altered mental status 03/14/2017 Obesity (BMI 30-39.9) 03/13/2017 UTI (urinary tract infection) 03/13/2017 Complicated UTI (urinary tract infection) 03/13/2017 Sepsis 06/19/2016 Essential hypertension, benign 10/18/2006 Calculus of kidney 10/18/2006 Routine general medical examination at [facility] acility 10/18/2006 Esophageal reflux 10/18/2006 Depressive disorder 10/18/2006 Overview: ICD10 Diagnosis Term Medical Typist Utility Anxiety state 10/18/2006 Overview: ICD10 Diagnosis Term Medical Typist Utility documented as of this encounter (statuses as of 08/26/2020) Immunizations Name Administration Dates Next Due Influenza [...] Name Priority Date/Time Associated Diagnosis Comme nts US ABDOMEN LIMITED Routine 08/25/2020 5:34 PM Chronic a nemia Results for this CDT Chronic obstructive procedur e are in pulmonary disease, the resul ts unspecified COPD section. type documented in this encounter Results US ABDOMEN LIMITED (08/25/2020 5:34 PM CDT) Specimen Impressions Performed At PACS/VR/DOSE Chronic liver parenchymal disease which may represent cirrhosis. There is sequelae of portal hypertension as manifested by splen omegaly and dilated main portal vein. No focal hepatic lesio n is identified. Preliminary Report Dictated by Resident: Norris Goddard I, Cesar Stuart MD., have reviewed this study and agree with the above report. Narrative Performed At EXAM: US ABDOMEN LIMITED PACS/VR/DOSE HISTORY: 84 years-old Female with Chroni c anemia . TECHNIQUE: Limited abdominal ultrasound was performed focused on the liver, biliary system, pancreas and spleen. Lyssa n portal vein was evaluated with color Doppler imaging. Crown Ironer Operator images were obta ined for the record. COMPARISON: 01/09/2020 CT abdomen pelvis, 10/05/2018 ultrasound FINDINGS: PANCREAS: Normal pancreatic head and bod y echogenicity to the extent visualized. AORTA: Abdominal aorta is normal in caliber whe re visualized. Diameter of the proximal abdominal aorta is 2.0 cm in AP dimension. LIVER: Length: 21.3 cm in craniocaudal dimensio n. Parenchyma: Heterogenous hepatic echogenicity. Nodular hepatic contour is noted. No focal lesion is detected Portal vein: Hepatopetal flow present in the main portal vein MPV diameter: 1.3 cm in AP dimension. GALLBLADDER: No cholelithiasis Normal gallbladder wall thickness, 0.3 c m. No pericholecystic fluid or inflammatory changes. Negative Hilliard's sign. BILE DUCTS: No intra- or extrahepatic biliary dilata tion.. Common Duct diameter: 0.6 cm. IVC: IVC is normal in appearance where visual ized SPLEEN: The spleen is enlarged in size. The sple en measures 17.8 cm. No focal lesions in the spleen OTHER: Imaged portions of the right kidn ey are unremarkable. Procedure Note [facility], Radiant Results Inft User - 2019 9:33 PM CDT EXAM: US ABDOMEN LIMITED HISTORY: 84 years-old Female with Chroni c anemia . TECHNIQUE: Limited abdominal ultrasound was performed focused on the liver, biliary system, pancreas and spleen. Lyssa n portal vein was evaluated with color Doppler imaging. Crown Ironer Operator im ages were obtained for the record. COMPARISON: 01/09/2020 CT abdomen pelvis, 10/05/2018 ultrasound FINDINGS: PANCREAS: Normal pancreatic head and bod y echogenicity to the extent visualized. AORTA: Abdominal aorta is normal in caliber whe re visualized. Diameter of the proximal abdominal aorta is 2.0 cm in AP dimension. LIVER: Length: 21.3 cm in craniocaudal dimensio n. Parenchyma: Heterogenous hepatic echogen icity. Nodular hepatic contour is noted. No focal lesion is detected Portal vein: Hepatopetal flow present in the main portal vein MPV diameter: 1.3 cm in AP dimension. GALLBLADDER: No cholelithiasis Normal gallbladder wall thickness, 0.3 c m. No pericholecystic fluid or inflammatory changes. Negative Hilliard's sign. BILE DUCTS: No intra- or extrahepatic biliary dilata tion.. Common Duct diameter: 0.6 cm. IVC: IVC is normal in appearance where visual ized SPLEEN: The spleen is enlarged in size. The sple en measures 17.8 cm. No focal lesions in the spleen OTHER: Imaged portions of the right kidn ey are unremarkable. IMPRESSION Chronic liver parenchymal disease which may represent cirrhosis. There is sequelae of portal hypertension as manif ested by splenomegaly and dilated main portal vein. No focal hepatic lesio n is identified. Preliminary Report Dictated by Resident: Cesar Juarez MD., have reviewed th is study and agree with the above report. Performing Organization Address City/State/Zipcode Phone Number PACS/VR/DOSE documented in this encounter Visit Diagnoses Diagnosis Chronic anemia Anemia, unspecified Chronic obstructive pulmonary disease, u nspecified COPD type documented in this encounter Additional Health Concerns Infection Onset Date Last Indicated Resolved Time Contact- MRSA 06/21/2016 06/21/2016 documented as of this encounter Insurance Payer Benefit Plan Subscriber ID Effective Phone Address Typ e / Group Dates MEDICARE MEDICARE PART [id number] 2002-Pres [phone] Medicare A & B ent [id number] [place] [address] [facility] [id number] 2018-Nickie Medic aid HEALTHCARE COMM STAR PLUS nt PLAN - MANAGED MEDICAID [phone] [id number] (Work) documented as of this encounter Advance Directives Name Relationship Healthcare Agent Communication Relationship Alejandro Castañeda Child Health Care Agent Brit Castañeda Grandchild [facility] Care Agent (Mobile) [email or web address]
--- OUTSIDE RECORDS SUMMARY | 2020-11-10 15:15 | XMS REPORT | Summary of Care ---
:1935 Author Organization [facility] Address [address] [place] [address] Care Team Providers Name Role Phone Julieta Primary Care Provider Encounter Details Date Type Department Care Team Description 09/25/2020 Orders Only [facility] Doctor Unassigned, No [address] [facility] [place] [address] [address] [place] [address] Allergies Active Allergy Reactions Severity Noted Date Comments Aspirin Unknown - See comments 04/29/2006 Sever e pain Diphenhydramine Hcl Palpitations High 07/01/2006 Morphine Unknown - See comments High 11/25/2017 Evin fernanda reports It "knocked her ou t and almost killed h er, she wouldn't wake u p." Sulfamethoprim Ds Other - See comments 01/02/2018 documented as of this encounter (statuses as of 09/30/2020) Medications Medication Sig Dispensed Refills Start Date [...] as of this encounter (statuses as of 09/30/2020) Active Problems Problem Noted Date Hypotension 11/24/2019 Acute pancreatitis 10/05/2018 SHANE (acute kidney injury) 03/16/2017 Hypoxia 03/16/2017 Polypharmacy 03/16/2017 Altered mental status 03/14/2017 Obesity (BMI 30-39.9) 03/13/2017 UTI (urinary tract infection) 03/13/2017 Complicated UTI (urinary tract infection) 03/13/2017 Sepsis 06/19/2016 Essential hypertension, benign 10/18/2006 Calculus of kidney 10/18/2006 Routine general medical examination at [facility] 10/18/2006 Esophageal reflux 10/18/2006 Depressive disorder 10/18/2006 Overview: ICD10 Diagnosis Term Regional Facilities Specialist Utility Anxiety state 10/18/2006 Overview: ICD10 Diagnosis Term Regional Facilities Specialist Utility documented as of this encounter (statuses as of 09/30/2020) Immunizations Name Administration Dates Next Due Influenza [...] Comme nts HOME HEALTH - OTHER Routine 09/25/2020 12:01 AM 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 Medicare A & B ent [id number] [place] [id number] [facility] [id number] 2018-Nickie Medic aid HEALTHCARE COMM STAR PLUS nt PLAN - MANAGED MEDICAID [facility] MEDICAID OF [id number] 2015-e [phone] [address] Med icaid [place] nt [phone] [id number] [place] [address] documented as of this encounter Advance Directives Name Relationship Healthcare Agent Communication Relationship Alejandro Castañeda Child Health Care Agent Brit Castañeda Grandchild [facility] Care Agent (Mobile) [email or web address]
--- OUTSIDE RECORDS SUMMARY | 2020-11-10 15:15 | XMS REPORT | Summary of Care ---
:1935 Author Organization [facility] Address [address] [place] [address] Care Team Providers Name Role Phone Julieta Primary Care Provider Encounter Details Date Type Department Care Team Description 10/13/2020 Orders Only [facility] Doctor Unassigned, No 301 [facility] [place] [address] [address] [place] [address] Allergies Active Allergy Reactions Severity Noted Date Comments Aspirin Unknown - See comments 04/29/2006 Sever e pain Diphenhydramine Hcl Palpitations High 07/01/2006 Morphine Unknown - See comments High 11/25/2017 Evin fernanda reports It "knocked her ou t and almost killed h er, she wouldn't wake u p." Sulfamethoprim Ds Other - See comments 01/02/2018 documented as of this encounter (statuses as of 10/14/2020) Medications Medication Sig Dispensed Refills Start Date [...] as of this encounter (statuses as of 10/14/2020) Active Problems Problem Noted Date Hypotension 11/24/2019 Acute pancreatitis 10/05/2018 SHANE (acute kidney injury) 03/16/2017 Hypoxia 03/16/2017 Polypharmacy 03/16/2017 Altered mental status 03/14/2017 Obesity (BMI 30-39.9) 03/13/2017 UTI (urinary tract infection) 03/13/2017 Complicated UTI (urinary tract infection) 03/13/2017 Sepsis 06/19/2016 Essential hypertension, benign 10/18/2006 Calculus of kidney 10/18/2006 Routine general medical examination at [facility] 10/18/2006 Esophageal reflux 10/18/2006 Depressive disorder 10/18/2006 Overview: ICD10 Diagnosis Term Electric Cell Tender Utility Anxiety state 10/18/2006 Overview: ICD10 Diagnosis Term Electric Cell Tender Utility documented as of this encounter (statuses as of 10/14/2020) Immunizations Name Administration Dates Next Due Influenza [...] Comme nts HOME HEALTH - OTHER Routine 10/13/2020 12:01 AM 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 Medicare A & B ent [id number] [place] [id number] [facility] [id number] 2018-Nickie Medic aid HEALTHCARE COMM STAR PLUS nt PLAN - MANAGED MEDICAID [facility] [place] MEDICAID OF [id number] 2015-e [phone] [address] Med icaid [place] nt 900 [id number] [place] [address] documented as of this encounter Advance Directives Name Relationship Healthcare Agent Communication Relationship Alejandro Castañeda Child Health Care Agent Brit Castañeda Grandchild [facility] Care Agent (Mobile) [email or web address]
--- OUTSIDE RECORDS SUMMARY | 2020-11-10 15:15 | XMS REPORT | Summary of Care ---
:1935 Author Organization [facility] Address [address] [place] [address] Care Team Providers Name Role Phone Julieta Primary Care Provider Encounter Details Date Type Department Care Team Description 10/23/2020 Orders Only [facility] Doctor Unassigned, No [address] [facility] [place] [address] [address] [place] [address] Allergies Active Allergy Reactions Severity Noted Date Comments Aspirin Unknown - See comments 04/29/2006 Sever e pain Diphenhydramine Hcl Palpitations High 07/01/2006 Morphine Unknown - See comments High 11/25/2017 Evin fernanda reports It "knocked her ou t and almost killed h er, she wouldn't wake u p." Sulfamethoprim Ds Other - See comments 01/02/2018 documented as of this encounter (statuses as of 10/28/2020) Medications Medication Sig Dispensed Refills Start Date [...] as of this encounter (statuses as of 10/28/2020) Active Problems Problem Noted Date Hypotension 11/24/2019 Acute pancreatitis 10/05/2018 SHANE (acute kidney injury) 03/16/2017 Hypoxia 03/16/2017 Polypharmacy 03/16/2017 Altered mental status 03/14/2017 Obesity (BMI 30-39.9) 03/13/2017 UTI (urinary tract infection) 03/13/2017 Complicated UTI (urinary tract infection) 03/13/2017 Sepsis 06/19/2016 Essential hypertension, benign 10/18/2006 Calculus of kidney 10/18/2006 Routine general medical examination at [facility] 10/18/2006 Esophageal reflux 10/18/2006 Depressive disorder 10/18/2006 Overview: ICD10 Diagnosis Term Sample Grader Utility Anxiety state 10/18/2006 Overview: ICD10 Diagnosis Term Sample Grader Utility documented as of this encounter (statuses as of 10/28/2020) Immunizations Name Administration Dates Next Due Influenza [...] Comme nts HOME HEALTH - OTHER Routine 10/23/2020 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 Medicare A & B ent [id number] [place] [phone] [facility] [id number] 2018-Nickie Medic aid HEALTHCARE COMM STAR PLUS nt PLAN - MANAGED MEDICAID [facility] MEDICAID OF [id number] 2015-e [phone] Med icaid [place] nt [phone] [id number] [place] [address] documented as of this encounter Advance Directives Name Relationship Healthcare Agent Communication Relationship Alejandro Castañeda Child Health Care Agent Brit Castañeda Grandchild [facility] Care Agent (Mobile) [email or web address]
--- OUTSIDE RECORDS SUMMARY | 2020-11-10 15:16 | XMS REPORT | Summary of Care ---
:1935 Author Organization [facility] Address [address] [place] [id number] Care Team Providers Name Role Phone Julieta Primary Care Provider Reason for Visit Reason Comments Transition Of Care Encounter Details Date Type Department Care Team Description 11/04/2020 Transition of Care [facility] Cadena [facility] RN [address] [address] Allergies Active Allergy Reactions Severity Noted Date Comments Aspirin Unknown - See comments 04/29/2006 Sever e pain Diphenhydramine Hcl Palpitations High 07/01/2006 Morphine Unknown - See comments High 11/25/2017 Evin michael reports It "knocked her ou t and almost killed h er, she wouldn't wake u p." Sulfamethoprim Ds Other - See comments 01/02/2018 documented as of this encounter (statuses as of 11/04/2020) Medications Medication Sig Dispensed Refills Start Date End Date Status levothyroxine Take 137 mcg by 0 Active (SYNTHROID) 137 mcg mouth every tablet morning. mirtazapine (REMERON) Take 15 mg by 0 Active 15 mg tablet mouth at bedtime. ipratropium-albuterol 1 Ampule every 4 0 Active (DUONEB) 0.5 mg-3 (four) hours as mg(2.5 mg base)/3 mL needed for nebulizer solution Wheezing. QUEtiapine 300 mg Take 0.5 tablets 30 tablet 1 03/16/2017 Active tablet by mouth at bedtime. HYDROcodone-acetamino Take 1 tablet by 0 Active phen 10-325 mg tablet mouth 4 (four) times daily. loratadine (CLARITIN) Take 10 mg by 0 Active 10 mg tablet mouth daily. magnesium oxide 400 Take 400 mg by 0 Active mg capsule mouth daily. memantine (NAMENDA Take 1 capsule 0 Active XR) 28 mg capsule by mouth daily. Olopatadine (PATADAY) Place 1 Drop in 0 Active 0.2 % ophthalmic each eye daily. dropsIndications: Indications: Each Eye Each Eye pantoprazole 40 mg EC Take 40 mg by 0 Active tablet mouth daily. aspirin 81 mg Take 81 mg by 0 Ac tive chewable tablet mouth daily. Cholecalciferol, Take 3 capsules 0 Active Vitamin D3, (VITAMIN by mouth daily. D3) 1,000 unit capsule lactulose 10 gram/15 Take 15 mL by 0 Active mL (15 mL) Soln mouth at bedtime. docusate (COLACE) 100 Take 100 mg by 0 Active mg capsule mouth daily. clonazePAM (KLONOPIN) Take 0.5 mg by 0 Active 0.5 mg tablet mouth 2 (two) times daily. Simethicone 125 mg Take 1 capsule 0 Active Tab by mouth every 4 (four) hours as needed (Gas). bisacodyl 5 mg EC Take 10 mg by 0 Active tablet mouth once daily as needed for Constipation. nitroglycerin Place 0.4 mg 0 Act brianna (NITROSTAT) 0.4 mg under the tongue sublingual tablet every 5 (five) minutes as needed for Chest pain. SERTraline 50 mg Take 75 mg by 0 Active tablet mouth daily. MULTIVITAMIN ORAL Take 1 tablet by 0 Active mouth daily. montelukast Take 10 mg by 0 Acti ve (SINGULAIR) 10 mg mouth daily. tablet DEXTRAN Place 1 Drop in 0 Acti ve 70/HYPROMELLOSE each eye 2 (two) (ARTIFICIAL TEARS times daily. OPHTHALMIC) gabapentin 600 mg Take 600 mg by 0 Active tabletIndications: mouth 2 (two) Take at 0800 and times daily. 1200. Indications: Take at 0800 and 1200. ferrous sulfate 325 Take 325 mg by 0 Active mg (65 mg iron) mouth 2 (two) tablet times daily. albuterol sulfate Inhale 2 Puffs 0 Active (PROAIR RESPICLICK) every 6 (six) 90 mcg/actuation AePB hours as needed for Other (Shortness of breath). umeclidinium-vilanter Inhale 1 Puff 0 Active ol (ANORO ELLIPTA) daily. 62.5-25 mcg/actuation inhalation disk donepezil 10 mg Take 15 mg by 0 Active tablet mouth at bedtime. tiZANidine 2 mg Take 2 mg by 0 A ctive capsule mouth at bedtime. acetaminophen 325 mg Take 650 mg by 0 Active tablet mouth every 6 (six) hours as needed for Pain (scale 1-3). cloNIDine 0.1 mg Take 0.1 mg by 0 Active tabletIndications: mouth every 6 SBP >180 (six) hours as needed for Other (B/P). Indications: SBP >180 alum-mag Take 30 mL by 0 Active hydroxide-simeth mouth every 6 (NAINA-MOX (six) hours as ANTACID-ANTIGAS) needed for 200-200-20 mg/5 mL Indigestion. suspension guaifenesin Take 10 mL by 0 Acti ve (NAINA-TUSSIN ORAL) mouth every 8 (eight) hours as needed (cough). lisinopriL 10 mg Take 1 tablet by 60 tablet 0 11/02/202012/02 Active tabletIndications: mouth 2 (two) Pneumonia due to times daily for COVID-19 virus, 30 days. Essential hypertension, Hepatic cirrhosis, unspecified hepatic cirrhosis type, unspecified whether ascites present ascorbic acid, Take 1 tablet by 28 tablet 0 11/02/2020 020 Active vitamin C, 500 mg mouth 2 (two) tabletIndications: times daily for Pneumonia due to 14 days. COVID-19 virus, Essential hypertension, Hepatic cirrhosis, unspecified hepatic cirrhosis type, unspecified whether ascites present dexAMETHasone 4 mg Take 1.5 tablets 8 tablet 0 11/02/2020 Active tabletIndications: by mouth daily Pneumonia due to for 5 days. COVID-19 virus, Essential hypertension, Hepatic cirrhosis, unspecified hepatic cirrhosis type, unspecified whether ascites present foLIC acid 1 mg Take 1 tablet by 30 tablet 0 11/03/20202020 Active tabletIndications: mouth daily for Pneumonia due to 30 days. COVID-19 virus, Essential hypertension, Hepatic cirrhosis, unspecified hepatic cirrhosis type, unspecified whether ascites present zinc sulfate 220 (50) Take 1 capsule 14 capsule 0 11/03/2020 1 01/18/2020 Active mg by mouth daily capsuleIndications: for 14 days. Pneumonia due to COVID-19 virus, Essential hypertension, Hepatic cirrhosis, unspecified hepatic cirrhosis type, unspecified whether ascites present levoFLOXacin 500 mg Take 1 tablet by 5 tablet 0 11/02/2020 Active tabletIndications: mouth every 24 Pneumonia due to (twenty-four) COVID-19 virus, hours for 5 Essential days. hypertension, Hepatic cirrhosis, unspecified hepatic cirrhosis type, unspecified whether ascites present documented as of this encounter (statuses as of 11/04/2020) Active Problems Problem Noted Date Pneumonia due to COVID-19 virus 10/29/2020 Hypotension 11/24/2019 Acute pancreatitis 10/05/2018 SHANE (acute kidney injury) 03/16/2017 Hypoxia 03/16/2017 Polypharmacy 03/16/2017 Altered mental status 03/14/2017 Obesity (BMI 30-39.9) 03/13/2017 UTI (urinary tract infection) 03/13/2017 Complicated UTI (urinary tract infection) 03/13/2017 Sepsis 06/19/2016 Essential hypertension, benign 10/18/2006 Calculus of kidney 10/18/2006 Routine general medical examination at [facility] acility 10/18/2006 Esophageal reflux 10/18/2006 Depressive disorder 10/18/2006 Overview: ICD10 Diagnosis Term Hide Tanner Utility Anxiety state 10/18/2006 Overview: ICD10 Diagnosis Term Hide Tanner Utility documented as of this encounter (statuses as of 11/04/2020) Immunizations Name Administration Dates Next Due Influenza [...] month, have you been in contact with Yes 10/29/2020 1:05 AM BUN PANNER someone who was confirmed or suspected to have Coronavirus / COVID-19? documented as of this encounter Last Filed Vital Signs Not on filedocumented in this encounter Miscellaneous Notes Telephone Encounter - Jennifer Cadena RN - 11/04/2020 12:29 PM CST TRANSITIONAL CARE MANAGEMENT ASSESSMENT 11/04/2020 Kelly Castañeda [id number] Kelly Castañeda is a 85 year old /White female was admitted on 10/29/20 to [facility])[place] [address]. She was discharged on 11/03/20 with discharge disposition of HR- Routine Discharge. Admitting Physician: Eber Telles Discharge Diagnosis: COVID19 pna Acute on chronic respiratory failure HTN Chronic anemia Cirrhosis Transaminitis UTI Hypothyroidism No linked episodes TCM [id number] outreach documentation: Discharge Assessment Chart Assessed: 11/04/20 Chart Reviewed - Post Discharge Call Deferred due to Change in Discharge Status.: Discharged to SNF([facility] [address], [place] F: [phone]) TCM Outreach Completed: 11/04/20 Future Appointments: Future Appointments Provider Department Dept Phone 01/12/2021 11:[address] Barrera MD [facility] [phone] PANNER documented in this encounter Plan of Treatment Date Type Specialty Care Team Description 01/12/2021 Office Visit Endocrinology Diabetes & Ave Urbina MD Metabolism [address] [place] [address] Health Maintenance Due Date Last Done Comments [...] Resolved Time Contact- MRSA 06/21/2016 06/21/2016 COVID-19 Confirmed 10/29/2020 10/29/2020 documented as of this encounter Insurance Payer Benefit Plan Subscriber ID Effective Phone Address Typ e / Group Dates MEDICARE MEDICARE PART [id number] 2002-Pres [phone] Medicare A & B ent [id number] [place] [id number] [facility] [id number] 2018-Prese Medic aid HEALTHCARE COMM STAR PLUS nt PLAN - MANAGED MEDICAID [facility] MEDICAID OF [id number] 2015-Prese [phone] [address] Med icaid [place] [phone] [place] [address] documented as of this encounter Advance Directives Name Relationship Healthcare Agent Communication Relationship Alejandro Castañeda Child Health Care Agent Brit Castañeda Grandchild [facility] Care Agent (Mobile) [email or web address]
--- OUTSIDE RECORDS SUMMARY | 2020-11-10 15:16 | XMS REPORT | Summary of Care ---
:1935 Author Organization [facility] - [facility] Address [address] [place] [address] Care Team Providers Name Role Phone Julieta Primary Care Provider Encounter Details Date Type Department Care Team Description 10/28/2020 Orders Only [facility] Doctor Unassigned, No [address] [facility] [place] [address] [address] [place] [address] Allergies Active Allergy Reactions Severity Noted Date Comments Aspirin Unknown - See comments 04/29/2006 Sever e pain Diphenhydramine Hcl Palpitations High 07/01/2006 Morphine Unknown - See comments High 11/25/2017 Rafaellamonte michael reports It "knocked her ou t and almost killed h er, she wouldn't wake u p." Sulfamethoprim Ds Other - See comments 01/02/2018 documented as of this encounter (statuses as of 10/29/2020) Medications Medication Sig Dispensed Refills Start Date End Date Status levothyroxine Take 137 mcg by 0 Suspended (SYNTHROID) 137 mcg mouth every tablet morning. mirtazapine (REMERON) Take 15 mg by 0 Suspended 15 mg tablet mouth at bedtime. ipratropium-albuterol 1 Ampule every 0 Suspended (DUONEB) 0.5 mg-3 4 (four) hours mg(2.5 mg base)/3 mL as needed for nebulizer solution Wheezing. ALBUTEROL INHALE Inhale 0.083 % 0 Suspended 3 (three) times daily. LIDOCAINE (LIDODERM Apply 1 Patch 0 Suspended TOPICAL) to area(s) daily. QUEtiapine 300 mg Take 0.5 30 tablet 1 03/16/2017 S uspended tablet tablets by mouth at bedtime. Additional Information Fluticasone-Salmeterol 100-50 Inhale 1 Puff every 60 Each 1 03/16/2017 Suspended mcg/dose inhalation disk 12 (twelve) hours. Additional Information HYDROcodone-acetaminophen 10-325 mg tablet Take 1 tablet by mouth 4 0 Suspended (four) times daily. loratadine (CLARITIN) 10 mg tablet Take 10 mg by mouth 0 Suspended daily. magnesium oxide 400 mg capsule Take 400 mg by mouth 0 Suspended daily. memantine (NAMENDA XR) 28 mg capsule Take 1 capsule by mouth 0 Suspended daily. Olopatadine (PATADAY) 0.2 % ophthalmic Place 1 Drop in each eye 0 Suspended dropsIndications: Each Eye daily. Indications: Each Eye pantoprazole 40 mg EC tablet Take 40 mg by mouth 0 Suspended daily. aspirin 81 mg chewable tablet Take 81 mg by mouth 0 Suspended daily. Cholecalciferol, Vitamin D3, (VITAMIN D3) Take 3 capsules by mouth 0 Suspended 1,000 unit capsule daily. lactulose 10 gram/15 mL (15 mL) Soln Take 15 mL by mouth at 0 Suspended bedtime. docusate (COLACE) 100 mg capsule Take 100 mg by mouth 0 Suspended daily. clonazePAM (KLONOPIN) 0.5 mg tablet Take 0.5 mg by mouth 2 0 Suspended (two) times daily. Simethicone 125 mg Tab Take 1 capsule by mouth 0 Suspended every 4 (four) hours as needed (Gas). Dextromethorphan-Guaifenesin (TUSSIN DM) Take 10 mL by mouth every 0 Suspended 10-100 mg/5 mL Liqd 6 (six) hours as needed for Cough. bisacodyl 10 mg suppository Insert 10 mg into rectum 0 Suspended once daily as needed for Constipation. bisacodyl 5 mg EC tablet Take 10 mg by mouth once 0 Suspended daily as needed for Constipation. MAGNESIUM HYDROXIDE (MILK OF MAGNESIA Take 30 mL by mouth once 0 Suspended CONCENTRATED ORAL) daily as needed for Constipation. nitroglycerin (NITROSTAT) 0.[address] 0.4 mg under the 0 Suspended sublingual tablet tongue every 5 (five) minutes as needed for Chest pain. MAGNESIUM CITRATE ORAL Take 10 oz by mouth once 0 Suspended daily as needed for Constipation. SERTraline 50 mg tablet Take 75 mg by mouth 0 Suspended daily. MULTIVITAMIN ORAL Take 1 tablet by mouth 0 Suspended daily. montelukast (SINGULAIR) 10 mg tablet Take 10 mg by mouth 0 Suspended daily. lisinopril 10 mg tablet Take 10 mg by mouth at 0 Suspended bedtime. DEXTRAN 70/HYPROMELLOSE (ARTIFICIAL TEARS Place 1 Drop in each eye 0 Suspended OPHTHALMIC) 2 (two) times daily. gabapentin 600 mg tabletIndications: Take Take 600 mg by mouth 2 0 Suspended at 0800 and 1200. (two) times daily. Indications: Take at 0800 and 1200. ferrous sulfate 325 mg (65 mg iron) tablet Take 325 mg by mouth 2 0 Suspended (two) times daily. albuterol sulfate (PROAIR RESPICLICK) 90 Inhale 2 Puffs every 6 0 Suspended mcg/actuation AePB (six) hours as needed for Other (Shortness of breath). umeclidinium-vilanterol (ANORO ELLIPTA) Inhale 1 Puff daily. 0 Suspended 62.5-25 mcg/actuation inhalation disk donepezil 10 mg tablet Take 15 mg by mouth at 0 Suspended bedtime. tiZANidine 2 mg capsule Take 2 mg by mouth at 0 Suspended bedtime. acetaminophen 325 mg tablet Take 650 mg by mouth 0 Suspended every 6 (six) hours as needed for Pain (scale 1-3). cloNIDine 0.1 mg tabletIndications: SBP Take 0.1 mg by mouth 0 Suspended >180 every 6 (six) hours as needed for Other (B/P). Indications: SBP >180 alum-mag hydroxide-simeth (NAINA-MOX Take 30 mL by mouth every 0 Suspended ANTACID-ANTIGAS) 200-200-20 mg/5 mL 6 (six) hours as needed suspension for Indigestion. guaifenesin (NAINA-TUSSIN ORAL) Take 10 mL by mouth every 0 Suspended 8 (eight) hours as needed (cough). phenazopyridine 100 mg tabletIndications: Take 200 mg by mouth 2 0 Suspended pain related to dysuria (two) times daily. Indications: pain related to dysuria documented as of this encounter (statuses as of 10/29/2020) Active Problems Problem Noted Date Pneumonia due to COVID-19 virus 10/29/2020 Hypotension 11/24/2019 Acute pancreatitis 10/05/2018 SHANE (acute kidney injury) 03/16/2017 Hypoxia 03/16/2017 Polypharmacy 03/16/2017 Altered mental status 03/14/2017 Obesity (BMI 30-39.9) 03/13/2017 UTI (urinary tract infection) 03/13/2017 Complicated UTI (urinary tract infection) 03/13/2017 Sepsis 06/19/2016 Essential hypertension, benign 10/18/2006 Calculus of kidney 10/18/2006 Routine general medical examination at [facility] 10/18/2006 Esophageal reflux 10/18/2006 Depressive disorder 10/18/2006 Overview: ICD10 Diagnosis Term Client Support Analyst Utility Anxiety state 10/18/2006 Overview: ICD10 Diagnosis Term Client Support Analyst Utility documented as of this encounter (statuses as of 10/29/2020) Immunizations Name Administration Dates Next Due Influenza [...] in contact with Yes 10/29/2020 1:05 AM 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 someone who was confirmed or suspected to [...] Comme nts HOME HEALTH - OTHER Routine 10/28/2020 12:01 AM 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 documented in this encounter Results Not on filedocumented in this encounter Additional Health Concerns Infection Onset Date Last Indicated Resolved Time Contact- MRSA 06/21/2016 06/21/2016 COVID-19 Rule Out 10/29/2020 10/29/2020 10/29/2020 2: 02 AM 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 COVID-19 Confirmed 10/29/2020 10/29/2020 documented as of this encounter Insurance Payer Benefit Plan Subscriber ID Effective Phone Address Typ e / Group Dates MEDICARE MEDICARE PART [id number] 2002-Pres [phone] Medicare A & B ent [id number] [place] [phone] [facility] [id number] 2018-Prese Medic aid HEALTHCARE COMM STAR PLUS nt PLAN - MANAGED MEDICAID [facility] MEDICAID OF [id number] 2015-Prese [phone] Med icaid [place] nt [phone] [place] [address] documented as of this encounter Advance Directives Name Relationship Healthcare Agent Communication Relationship Alejandro Castañeda Child Health Care Agent Brit Castañeda Grandchild [facility] Care Agent (Mobile) [email or web address]
[2020-11-10] MEDS ORDERED: NA CHLORIDE 0.9% 500 ML ONE (16:06)
--- NOTE | 2020-11-10 16:45 | RAD REPORT ---
EXAM DESCRIPTION: RAD - Chest Single View - 11/10/2020 4:22 pm CLINICAL HISTORY: DYSPNEA Chest pain. COMPARISON: CHEST SINGLE VIEW dated 07/30/2011; CHEST PA AND LAT 2 VIEW dated 10/20/2009; CHEST PA AND LAT 2 VIEW dated 04/24/2009; ABDOMEN ACUTE SERIES dated 09/11/2002; RAD CHEST PA AND LAT (2 VIEWS) van ed 02/17/2012 FINDINGS: Portable technique limits examination quality. Mild interstitial opacities present bilaterally. The heart is mildly enlarged in size. No displaced f ractures. IMPRESSION: Mild interstitial opacities could indicate a viral bronchitis.
[2020-11-10 16:56] LABS: Urine Appearance CLOUDY; Urine Blood NEGATIVE (NEG); Urine Color DK YELLOW; Urine Glucose NEGATIVE (NEG); Urine Protein TRACE (NEG); Urine Specific Gravity 1.025 (1.005-1.030)
[2020-11-10 17:08] LABS: Urine Amorphous Sediment 2+ /HPF (NONE SEEN); Urine Bacteria <20 /HPF (<20); Urine Bilirubin 1+ (NEG); Urine Microscopic Reflex ORDER UMIC; Urine Mucus 2+ /HPF (NONE SEEN); Urine RBC <5 /HPF (NONE SEEN)
[2020-11-10 17:08] LABS: Absolute Lymphocytes (CBC) 1.7 K/uL (0.7-4.9); Basophils % 0.7 % (0-1.3); Hematocrit 37.1 % (36.0-45.0); Lymphocytes % 25.1 % (15.3-44.8); MPV 7.5 fL (7.6-11.3); RBC Red Blood Cell Count 4.64 M/uL (3.86-4.86)
[2020-11-10 17:23] LABS: Protime INR 1.21
[2020-11-10 17:25] LABS: ALT/SGPT 43 U/L (12-78); AST/SGOT 34 U/L (15-37); Albumin 3.3 g/dL (3.4-5.0); Alkaline Phosphatase 73 U/L (45-117); BUN Blood Urea Nitrogen 16 mg/dL (7-18); Bicarbonate 23 mmol/L (21-32); Bilirubin Direct < 0.1 mg/dL (0-0.2); Bilirubin Total 0.3 mg/dL (0.2-1.0); Glucose Level 124 mg/dL (74-106); Lipase 106 U/L (73-393); Magnesium 2.1 mg/dL (1.8-2.4); NT PRO-BNP 481 pg/mL (<450); Potassium 3.6 mmol/L (3.5-5.1); Sodium Level 134 mmol/L (136-145)
--- NOTE | 2020-11-10 18:33 | EDPHYS ---
Physician Documentation [facility] Name: Kelly Castañeda Age: 85 yrs Sex: Female : 1935 Arrival Date: 11/10/2020 Time: 15:12 Bed 8 Private MD: ED Physician Karthik Diggs HPI: 11/10 17:09 This 85 yrs old Female presents to ER via EMS with complaints of Shortness Of jr8 Breath - COVID +. 17:09 Onset: The symptoms/episode began/occurred gradually, 1 week(s) ago. Duration: The jr8 symptoms are intermittent. The patient's shortness of breath has no apparent modifying factors. Associated signs and symptoms: Pertinent positives: diarrhea. Severity of symptoms: At their worst the symptoms were moderate in the emergency department the symptoms are unchanged. The patient has not experienced similar symptoms in the past. The patient has not recently seen a physician. Historical: - Allergies: 15:21 Morphine; vg1 15:21 Ceclor; vg1 15:21 Sulfa (Sulfonamide Antibiotics); vg1 - Home Meds: 15:43 Albuterol Inhl [Active]; Aricept 20 mg Oral tab 1 tab once daily [Active]; aspirin 81 jl7 mg Oral TbEC 1 tab once daily [Active]; clonazepam 0.5 mg Oral tab 1 tab 2 times per day [Active]; clonidine HCl 0.1 mg Oral tab [Active]; gabapentin 400 mg oral cap 1 cap 3 times per day [Active]; [place] 10-325 mg Oral tab 1 tab every 6 hours [Active]; levothyroxine 137 mcg tab 1 tab once daily [Active]; lisinopril 10 mg Oral tab 1 tab BID [Active]; Namenda oral 28 mg oral 1 tab daily [Active]; oxybutynin chloride 5 mg Oral tab 1 tab 2 times per day [Active]; pantoprazole 20 mg oral TbEC 1 tab once daily [Active]; Remeron 15 mg Oral tab 1 tab once daily [Active]; Seroquel 300 mg Oral tab 1 tab once daily [Active]; tizanidine 2 mg oral tab [Active]; Zoloft 50 mg Oral tab [Active]; - PMHx: 15:43 Hyperlipidemia; GERD; Hypothyroidism; Restless leg syndrome; Osteoporosis; Depression; jl7 CHF; Hypertension; Anemia; Chronic pain; Alzheimers; Cirrhosis; Anxiety; Bipolar disorder; Rheumatic mitral valve disease; COPD; - Immunization history:: Adult Immunizations up to date. - Social history:: Smoking status: Patient denies any tobacco usage or history of. ROS: 17:09 Eyes: Negative for injury, pain, redness, and discharge, ENT: Negative for injury, jr8 pain, and discharge, Neck: Negative for injury, pain, and swelling, Cardiovascular: Negative for chest pain, palpitations, and edema, Back: Negative for injury and pain, MS/Extremity: Negative for injury and deformity, Skin: Negative for injury, rash, and discoloration, Neuro: Negative for headache, weakness, numbness, tingling, and seizure. 17:09 Respiratory: Positive for shortness of breath. 17:09 Abdomen/GI: Positive for diarrhea, Negative for abdominal pain, nausea and vomiting. Exam: 17:09 Eyes: Pupils equal round and reactive to light, extra-ocular motions intact. Lids and jr8 lashes normal. Conjunctiva and sclera are non-icteric and not injected. Cornea within normal limits. Periorbital areas with no swelling, redness, or edema. ENT: Nares patent. No nasal discharge, no septal abnormalities noted. Tympanic membranes are normal and external auditory canals are clear. Oropharynx with no redness, swelling, or masses, exudates, or evidence of obstruction, uvula midline. Mucous membranes moist. Neck: Trachea midline, no thyromegaly or masses palpated, and no cervical lymphadenopathy. Supple, full range of motion without nuchal rigidity, or vertebral point tenderness. No Meningismus. Cardiovascular: Regular rate and rhythm with a normal S1 and S2. No gallops, murmurs, or rubs. Normal PMI, no JVD. No pulse deficits. Respiratory: Lungs have equal breath sounds bilaterally, clear to auscultation and percussion. No rales, rhonchi or wheezes noted. No increased work of breathing, no retractions or nasal flaring. Abdomen/GI: Soft, non-tender, with normal bowel sounds. No distension or tympany. No guarding or rebound. No evidence of tenderness throughout. Back: No spinal tenderness. No costovertebral tenderness. Full range of motion. Skin: Warm, dry with normal turgor. Normal color with no rashes, no lesions, and no evidence of cellulitis. MS/ Extremity: Pulses equal, no cyanosis. Neurovascular intact. Full, normal range of motion. Neuro: Awake and alert, GCS 15, oriented to person, place, time, and situation. Cranial nerves II-XII grossly intact. Motor strength 5/5 in all extremities. Sensory grossly intact. Vital Signs: 15:13 BP 97 / 48; Pulse 60; Resp 20; Temp 97.9; Pulse Ox 92% on 2 lpm NC; Weight 79.38 kg; vg1 16:00 BP 97 / 54; Pulse 60; Resp 18; Pulse Ox 96% on 2 lpm NC; vg1 18:29 BP 151 / 63; Pulse 74; Resp 17; Pulse Ox 97% on R/A; tw2 19:40 BP 149 / 83; Pulse 79; Resp 16; Temp 98.1; Pulse Ox 98% ; rr5 21:00 BP 148 / 95; Pulse 72; Resp 19; Temp 98; Pulse Ox 96% 3 lpm ; rr5 MDM: 15:30 Patient medically screened. [facility] 18:31 Data reviewed: vital signs, nurses notes, lab test result(s), EKG, radiologic studies, [facility] plain films. Data interpreted: Pulse oximetry: on room air is 97 %. Interpretation: normal. Counseling: I had a detailed discussion with the patient and/or guardian regarding: the historical points, exam findings, and any diagnostic results supporting the discharge/admit diagnosis, lab results, radiology results, the need for outpatient follow up, a family practitioner, to return to the emergency department if symptoms worsen or persist or if there are any questions or concerns that arise at home. ED course: Patient doing much better after fluids. Feels better. Able to stand up and without dizziness or fatigue. BP normalized. Labs stable. Patient normally on oxygen and doing well at this time. Will send back to [place]. . 11/10 15:30 Order name: Basic Metabolic Panel [facility] 11/10 15:30 Order name: CBC with Diff [facility] 11/10 15:30 Order name: LFT's [facility] 11/10 15:30 Order name: Magnesium [facility] 11/10 15:30 Order name: NT PRO-BNP [facility] 11/10 15:30 Order name: PT-INR [facility] 11/10 15:30 Order name: Lipase [facility] 11/10 16:31 Order name: Urine Microscopic Only em1 11/10 16:31 Order name: UA em1 11/10 17:08 Order name: Urinalysis; Complete Time: 17:11 EDMS 11/10 17:08 Order name: Urine Microscopic Only; Complete Time: 17:11 EDMS 11/10 17:22 Order name: CBC with Automated Diff; Complete Time: 17:36 EDMS 11/10 17:25 Order name: Protime (+INR); Complete Time: 17:36 EDMS 11/10 17:25 Order name: Basic Metabolic Panel; Complete Time: 17:36 EDMS 11/10 15:30 Order name: XRAY Chest (1 view) [facility] 11/10 15:30 Order name: EKG; Complete Time: 15:32 [facility] 11/10 15:30 Order name: Cardiac monitoring; Complete Time: 18:26 [facility] 11/10 15:30 Order name: EKG - Nurse/Tech; Complete Time: 18:26 [facility] 11/10 15:30 Order name: IV Saline Lock; Complete Time: 18:26 [facility] 11/10 15:30 Order name: Labs collected and sent; Complete Time: 18:26 [facility] 11/10 15:30 Order name: O2 Per Protocol; Complete Time: 18:26 [facility] 11/10 15:30 Order name: O2 Sat Monitoring; Complete Time: 18:26 [facility] 11/10 16:46 Order name: RAD; Complete Time: 17:01 EDMS 11/10 17:25 Order name: Liver (Hepatic) Function; Complete Time: 17:36 EDIL 11/10 17:25 Order name: NT PRO-BNP; Complete Time: 17:36 EDIL 11/10 17:25 Order name: Magnesium; Complete Time: 17:36 EDMS 11/10 17:25 Order name: Lipase; Complete Time: 17:36 EDMS 11/10 18:15 Order name: Urine Culture EDMS Administered Medications: 16:00 Drug: NS 0.9% 500 ml Route: IV; Rate: bolus; Site: left wrist; vg1 18:38 Follow up: IV Status: Completed infusion; IV Intake: 500ml vg1 Disposition: 11/10/20 18:33 Discharged to Home. Impression: Diarrhea, unspecified, Dehydration, Orthostatic hypotension. - Condition is Stable. - Discharge Instructions: Dehydration, Adult, Orthostatic Hypotension. - Medication Reconciliation Form, Thank You Letter, Antibiotic Education, Prescription Opioid Use form. - Follow up: Private Physician; When: 1 - 2 days; Reason: Recheck today's complaints, Continuance of care, Re-evaluation by your physician. - Problem is new. - Symptoms have improved. Addendum: 11/16/2020 09:06 Co-signature as Attending Physician, Karthik Diggs MD. r n Signatures: Dispatcher [employer] EDIL Karthik Diggs MD MD rn Roszak, Josh, PA PA jr8 Dorian Beckham RN RN jl7 Victor Hugo Burns RN RN rr5 Inga Hinkle RN RN vg1 Corrections: (The following items were deleted from the chart) 11/10 21:12 18:33 11/10/2020 18:33 Discharged to Home. Impression: Diarrhea, unspecified; rr5 Dehydration; Orthostatic hypotension. Condition is Stable. Forms are Medication Reconciliation Form, Thank You Letter, Antibiotic Education, Prescription Opioid Use. Follow up: Private Physician; When: 1 - 2 days; Reason: Recheck today's complaints, Continuance of care, Re-evaluation by your physician. Problem is new. Symptoms have improved. jr8
--- NOTE | 2020-11-10 18:33 | ER ---
Nurse's Notes [facility] Name: Kelly Castañeda Age: 85 yrs Sex: Female : 1935 Arrival Date: 11/10/2020 Time: 15:12 Bed 8 Private MD: Diagnosis: Diarrhea, unspecified;Dehydration;Orthostatic hypotension Presentation: 11/10 15:13 Chief complaint: EMS states: Patient is from [place]. Was called out for vg1 hypoxemia. Was at 90% O2 on 6L NC. Patient placed on 2L NC in ambulance with O2 at 96%. Coronavirus screen: Client presents with at least one sign or symptom that may indicate coronavirus-19. Standard/surgical mask placed on the client. Provider contacted for isolation considerations. Ebola Screen: Patient negative for fever greater than or equal to 101.5 degrees Fahrenheit, and additional compatible Ebola Virus Disease symptoms. Initial Sepsis Screen: Does the patient meet any 2 criteria?. Initial Sepsis Screen: Does the patient meet any 2 criteria? No. Patient's initial sepsis screen is negative. Does the patient have a suspected source of infection? No. Patient's initial sepsis screen is negative. Risk Assessment: Do you want to hurt yourself or someone else? Patient reports no desire to harm self or others. Onset of symptoms was November 10, 2020. 15:13 Method Of Arrival: EMS: [facility] vg1 15:13 Acuity: ANITA 3 vg1 Historical: - Allergies: 15:21 Morphine; vg1 15:21 Ceclor; vg1 15:21 Sulfa (Sulfonamide Antibiotics); vg1 - Home Meds: 15:43 Albuterol Inhl [Active]; Aricept 20 mg Oral tab 1 tab once daily [Active]; aspirin 81 jl7 mg Oral TbEC 1 tab once daily [Active]; clonazepam 0.5 mg Oral tab 1 tab 2 times per day [Active]; clonidine HCl 0.1 mg Oral tab [Active]; gabapentin 400 mg oral cap 1 cap 3 times per day [Active]; [place] 10-325 mg Oral tab 1 tab every 6 hours [Active]; levothyroxine 137 mcg tab 1 tab once daily [Active]; lisinopril 10 mg Oral tab 1 tab BID [Active]; Namenda oral 28 mg oral 1 tab daily [Active]; oxybutynin chloride 5 mg Oral tab 1 tab 2 times per day [Active]; pantoprazole 20 mg oral TbEC 1 tab once daily [Active]; Remeron 15 mg Oral tab 1 tab once daily [Active]; Seroquel 300 mg Oral tab 1 tab once daily [Active]; tizanidine 2 mg oral tab [Active]; Zoloft 50 mg Oral tab [Active]; - PMHx: 15:43 Hyperlipidemia; GERD; Hypothyroidism; Restless leg syndrome; Osteoporosis; Depression; jl7 CHF; Hypertension; Anemia; Chronic pain; Alzheimers; Cirrhosis; Anxiety; Bipolar disorder; Rheumatic mitral valve disease; COPD; - Immunization history:: Adult Immunizations up to date. - Social history:: Smoking status: Patient denies any tobacco usage or history of. Screenin:45 Abuse screen: Denies threats or abuse. Denies injuries from another. Nutritional jl7 screening: No deficits noted. Tuberculosis screening: No symptoms or risk factors identified. Fall Risk No fall in past 12 months (0 pts). Secondary diagnosis (15 points) Alzheimer's, IV access (20 points). Ambulatory Aid- None/Bed Rest/Nurse Assist (0 pts). Gait- Weak (10 pts.). Mental Status- Overestimates/Forgets Limitations (15 pts.). Total Persaud Fall Scale indicates High Risk Score (45 or more points). Fall prevention measures have been instituted. Side Rails Up X 2 Placed Close to Nursing Station Frequent Obs/Assessments Occuring As available patient and family educated on Fall Prevention Program and Strategies. Assessment: 15:15 General: Appears in no apparent distress. comfortable, Behavior is calm, cooperative. vg1 Pain: Denies pain. Neuro: Level of Consciousness is awake, alert, obeys commands, Oriented to person, place, time, situation. Cardiovascular: Patient's skin is warm and dry. Respiratory: Airway is patent Respiratory effort is even, unlabored, Respiratory pattern is regular, symmetrical. GI: No signs and/or symptoms were reported involving the gastrointestinal system. : No signs and/or symptoms were reported regarding the genitourinary system. EENT: No signs and/or symptoms were reported regarding the EENT system. Derm: Skin is pink, warm \T\ dry. Musculoskeletal: Range of motion: intact in all extremities. 16:30 Reassessment: Patient appears in no apparent distress at this time. Patient is alert, vg1 oriented x 3, equal unlabored respirations, skin warm/dry/pink. 18:00 Reassessment: Patient appears in no apparent distress at this time. Patient is alert, vg1 oriented x 3, equal unlabored respirations, skin warm/dry/pink. Resting with eyes closed. 18:44 Reassessment: Called to [facility] and spoke with Jasmin TABOR about patients vg1 discharge. Jasmin TABOR reported they do not have transportation at this time. Notified her that we would set transportation for patient. 19:44 Reassessment: Patient and/or family updated on plan of care and expected duration. Pain ea level reassessed. Patient is alert, oriented x 3, equal unlabored respirations, skin warm/dry/pink. Awaiting on transportation back to [facility]. 20:36 Reassessment: Patient and/or family updated on plan of care and expected duration. Pain ea level reassessed. Patient is alert, oriented x 3, equal unlabored respirations, skin warm/dry/pink. Awaiting for transportation. 21:13 Reassessment: Patient appears in no apparent distress at this time. Patient is alert, rr5 oriented x 3, equal unlabored respirations, skin warm/dry/pink. report given to OUMAR, awake, alert assisted on wheelchair with oxygen at 3 liters/nasal cannula. Vital Signs: 15:13 BP 97 / 48; Pulse 60; Resp 20; Temp 97.9; Pulse Ox 92% on 2 lpm NC; Weight 79.38 kg; vg1 16:00 BP 97 / 54; Pulse 60; Resp 18; Pulse Ox 96% on 2 lpm NC; vg1 18:29 BP 151 / 63; Pulse 74; Resp 17; Pulse Ox 97% on R/A; tw2 19:40 BP 149 / 83; Pulse 79; Resp 16; Temp 98.1; Pulse Ox 98% ; rr5 21:00 BP 148 / 95; Pulse 72; Resp 19; Temp 98; Pulse Ox 96% 3 lpm ; rr5 ED Course: 15:12 Patient arrived in ED. vg1 15:12 Ross Saez PA is PHCP. jr8 15:12 Karthik Diggs MD is Attending Physician. jr8 15:20 Triage completed. vg1 15:24 Inga Hinkle, RN is Primary Nurse. vg1 15:43 Arm band placed on right wrist. jl7 15:45 Patient has correct armband on for positive identification. Placed in gown. Bed in low jl7 position. Call light in reach. Side rails up X 1. senior accounting associate on. Pulse ox on. NIBP on. 17:10 Initial lab(s) drawn, by me, sent to lab. Urine collected: straight cath specimen, jl7 cloudy, Amount Returned: 20mL EKG done, by ED staff, reviewed by Ross MORENO. Inserted saline lock: 24 gauge in right wrist, using aseptic technique. Blood collected. 19:05 No provider procedures requiring assistance completed. IV discontinued, intact, jl7 bleeding controlled, No redness/swelling at site. Pressure dressing applied. Administered Medications: 16:00 Drug: NS 0.9% 500 ml Route: IV; Rate: bolus; Site: left wrist; vg1 18:38 Follow up: IV Status: Completed infusion; IV Intake: 500ml vg1 Intake: 18:38 IV: 500ml; Total: 500ml. vg1 Outcome: 18:33 Discharge ordered by . jrMaricruz 19:05 Discharged to [facility]. Report called to LEANDER Castellanosdistrict wildlife manager form completed. jl7 19:05 Condition: stable 19:05 Discharge instructions given to patient, [facility], Instructed on discharge instructions, follow up and referral plans. Demonstrated understanding of instructions, follow-up care. 21:12 Patient left the ED. rr5 Addendum: 11/14/2020 10:07 Addendum: Culture Results: Positive urine culture. Contacted [facility] a a5 and spoke to LEANDER Castellanos. LEANDER Castellanos notified of order for Macrobid 100 mg PO BID x 10 days per Katy Kennedy NP. Signatures: Malinda Ojeda, RN RN aa5 Ross Saez PA PA jr8 Yudi Cherry, RN RN tw2 Dorian Beckham RN RN jl7 Brandy George, Victor Hugo Troncoso RN, ea, RN RN rr5 Inga Hinkle, RN RN vg1
--- NOTE | 2020-11-11 12:41 | EKG ---
Test Date: 2020-11-10 Test Time: 15:55:36 Enrollment Eligibility Representative: RONNI MEASUREMENT RESULTS: Intervals: Rate: 52 WA: 132 QRSD: 94 QT: 452 QTc: 420 [place]: P: -3 WA: 132 QRS: 10 T: 54 INTERPRETIVE STATEMENTS: Sinus bradycardia ST abnormality, possible digitalis effect Abnormal ECG Compared to ECG 07/30/2011 08:20:04 ST (T wave) deviation now present Sinus rhythm no longer present Sinus arrhythmia no longer present Electronically Signed On 11-11-20 12:39:39 INFORMATION TECHNOLOGY TECHNICIAN by Paul Cross
[2020-11-12 02:05] VITALS: TEMP 97.9
[2020-11-12 02:07] VITALS: BP 151/63; O2SAT 97
== END 2020-11-10 21:12 | disposition home or self-care (01) ==
LOC: ER 15:11
DX: E86.0 Dehydration (principal); I95.1 Orthostatic hypotension; I10 Essential (primary) hypertension; F31.9 Bipolar disorder, unspecified; J44.9 Chronic obstructive pulmonary disease, unspecified; I50.9 Heart failure, unspecified; E03.9 Hypothyroidism, unspecified; G30.9 Alzheimer's disease, unspecified; F02.80 Dementia in other diseases classified elsewhere, unspecified severity, without behavioral disturbance, psychotic disturbance, mood disturbance, and anxiety; Z86.19 Personal history of other infectious and parasitic diseases; Z79.82 Long term (current) use of aspirin; Z88.1 Allergy status to other antibiotic agents; Z88.2 Allergy status to sulfonamides; Z88.5 Allergy status to narcotic agent
CPT/HCPCS: 96361; 93005; 87088; 85025; 87086; 80048; 36415; 83735; 85610; 80076; 87077; 87186; 83690; 83880; 71045; 96360; 99284; J7040; 81003; 81015

== ENCOUNTER 2023-01-14 09:32 | Day surgery (SDC) | payer OTHER ==
[2023-01-14 09:46] LABS: Absolute Lymphocytes (CBC) 1.1 K/uL (0.7-4.9); Hematocrit 28.8 % (36.0-45.0); MCV 95.6 fL (80-100); MPV 7.7 fL (7.6-11.3); RBC Red Blood Cell Count 3.01 M/uL (3.86-4.86)
[2023-01-14 09:48] LABS: Protime INR 1.33
[2023-01-14] MEDS ORDERED: Ringers Lactate 1,000 ML IV ONE (10:19)
[2023-01-14 10:24] LABS: Anisocytosis 1+; Blood Morphology Comment NOTED (NOT SEEN); Macrocytosis 1+; Platelet Estimate ADEQ; White Blood Cell Scan OK (OK)
[2023-01-14] MEDS ORDERED: propofoL 200 MG/20 ML VIAL IV ONE ×2 (10:57→10:58)
[2023-01-14] MEDS ORDERED: LIDOCAINE 1% MPF 5 ML VIAL ONE (10:57)
[2023-01-14] MEDS ORDERED: EPINEPHRINE/PF 1 MG/ML AMP ONE (11:28)
[2023-01-14 12:48] VITALS: TEMP 97
[2023-01-14 12:49] VITALS: BP 109/89; O2SAT 97
--- NOTE | 2023-01-14 13:18 | EKG ---
Test Date: 2023-01-14 Test Time: 09:08:51 Wafer Production Worker: JOSE MEASUREMENT RESULTS: Intervals: Rate: 71 OR: 172 QRSD: 86 QT: 432 QTc: 469 [place]: P: 49 OR: 172 QRS: 42 T: 57 INTERPRETIVE STATEMENTS: Normal sinus rhythm Normal ECG Compared to ECG 11/10/2020 15:55:36 Sinus bradycardia no longer present ST (T wave) deviation no longer present Electronically Signed On 01-14-23 13:17:46 EMPLOYMENT LAW SPECIALIST by Adrien Crow
== END 2023-01-14 13:19 | disposition home or self-care (01) ==
LOC: OR 09:32
PROVIDERS: ATTEND Surgery
PROC: 0DB98ZX Excision of Duodenum, Via Natural or Artificial Opening Endoscopic, Diagnostic (ICD-10-PCS; 2023-01-14)
PROC: 0DB78ZX Excision of Stomach, Pylorus, Via Natural or Artificial Opening Endoscopic, Diagnostic (ICD-10-PCS; 2023-01-14)
PROC: 3E0G8GC Introduction of Other Therapeutic Substance into Upper GI, Via Natural or Artificial Opening Endoscopic (ICD-10-PCS; 2023-01-14)
PROC: 0DBF8ZX Excision of Right Large Intestine, Via Natural or Artificial Opening Endoscopic, Diagnostic (ICD-10-PCS; 2023-01-14)
PROC: 0DBH8ZX Excision of Cecum, Via Natural or Artificial Opening Endoscopic, Diagnostic (ICD-10-PCS; principal; 2023-01-14 10:00)
PROC: 0DBL8ZX Excision of Transverse Colon, Via Natural or Artificial Opening Endoscopic, Diagnostic (ICD-10-PCS; 2023-01-14 10:00)
DX: D50.0 Iron deficiency anemia secondary to blood loss (chronic) (principal); K92.2 Gastrointestinal hemorrhage, unspecified; K29.80 Duodenitis without bleeding; K25.7 Chronic gastric ulcer without hemorrhage or perforation; K29.50 Unspecified chronic gastritis without bleeding
CPT/HCPCS: 45380; 43239; 93005; 85025; 80048; 36415; 86900; 86850; 88312; 85610; 86901; 88305; 85730; J2704; J0171; J2001; J7120